=== PATIENT | male | born 1950 | race Caucasian/White ===

== ENCOUNTER 2018-05-02 18:44 | Emergency (ER) | payer OTHER, SELFPAY ==
[2018-05-02 18:45] VITALS: BP 173/71; PULSE 67; RESP 18; TEMP 36.8; O2SAT 97; BMI 46.9
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
[2018-05-02] MEDS: Ibuprofen 400 MG Tablet 800 MG PO (19:28)
[2018-05-02 19:39] VITALS: BP 147/57; PULSE 65; RESP 15; O2SAT 98
== END 2018-05-02 19:50 | disposition home or self-care (01) ==
PROVIDERS: Emergency Provider Emergency Medicine; Family Provider Family Medicine; PCP Family Medicine
DX: M25.512 Pain in left shoulder (principal); V89.2XXA Person injured in unspecified motor-vehicle accident, traffic, initial encounter; Y93.89 Activity, other specified; Y92.410 Unspecified street and highway as the place of occurrence of the external cause
CPT/HCPCS: 73030; 99284

== ENCOUNTER 2018-07-12 05:24 | Day surgery (SDC) | payer OTHER, SELFPAY ==
[2018-07-12] VITALS (7 sets, daily range): BP systolic 132–166; BP diastolic 66–94; PULSE 74–82; RESP 16–18; TEMP 36–36.2; O2SAT 90–98; BMI 53.8
--- NOTE | 2018-07-12 06:16 | HP.PCM_ITS ---
Problem List (1) Personal history of colonic polyps Status: Acute History of Present Illness Date of Admission: 07/12/18 The patient is a 68 year old M who presents for a colonoscopy. His most recent colonoscopy was May 19, 2013. Dating back to 2010 he had tubular adenoma s. Fortunately there were no polyps identified 2012. He has no family history of colon cancer. His most pertinent medical comorbidity is morbid obesity with a BMI of 53.9. He otherwise denies abdominal pain bright red blood per rectum or melena. He has otherwise been enjoying a stable to review of medical health. I saw him in the office on June 10, 2018. His health was reviewed at that s etting. Past Medical History Medical History: Medical History (Last Reviewed 06/10/18 @ 10:54 by Loretta Villalobos) Personal history of colonic polyps (Acute) Z86.010 HTN (hypertension) I10 Allergies No Known Allergies Allergy (Verified 07/12/18 05:55) Home Medications: Ambulatory Orders Medication Instructions Recorded Docusate Sodium [Colace] 100 mg PO DAILY #20 capsule 05/02/18 atenolol 50 mg tablet 50 mg PO DAILY 06/10/18 fexofenadine 180 mg tablet 180 mg PO DAILY 06/10/18 hydrochlorothiazide 12.5 mg tablet 12.5 mg PO DAILY 06/10/18 lisinopril 5 mg tablet 5 mg PO DAILY 06/10/18 lorazepam 1 mg tablet 1 mg PO QHS PRN 06/10/18 meloxicam 15 mg tablet 15 mg PO DAILY 06/10/18 Surgical History: Surgical History (Last Reviewed 06/10/18 @ 10:55 by Loretta Villalobos) S/P laparoscopic cholecystectomy Z90.49 Status post lateral meniscus repair Z98.890 Smoking Status: Never smoker Review of Systems Constitutional: Denies: Anorexia HEENT: Denies: Difficulty Swallowing Cardiovascular: Denies: Chest Pain Respiratory: Denies: Cough Gastrointestinal: Denies: Abdominal Pain Neurological: Denies: Difficulty swallowing Psychiatric: Denies: Anxiety Endocrine: Denies: Change in Body Habitus VTE Information - Inpt Only VTE Present on Admission: No - Physical Exam General: Alert, Oriented x3, Cooperative, No apparent distress Oral: Moist Mucosa Neck: Supple Lungs: Clear to auscultation Cardiovascular: Regular rate, Regular Rhythm Abdomen: Bowel Sounds Present, Soft, Non Tender Extremities: No clubbing Neurological: Cranial nerves II-XII grossly intact Psych/Mental Status: Normal Affect Vital Signs Temp Pulse Resp BP Pulse Ox 97.2 F L 82 18 132/69 H 98 07/12/18 05:56 07/12/18 05:56 07/12/18 05:56 07/12/18 05:56 07/12/18 05:56 Oxygen Delivery Method Room Air Weight: 375 lb Body Mass Index (BMI) 53.8 Assessment/Plan All Active Problems (Last Reviewed 06/10/18 @ 10:54 by Loretta Villalobos) Personal history of colonic polyps (Acute) Personal history of colon polyps. I recommended colonoscopy with possible biopsy or polypectomy is indicated. He is aware of the technique, benefits, risks and alternatives. He has actually had this nicely done with IV sedation in the past. We will proceed was noted. He has had an opportunity to ask and have questions answered. Sha Adam M.D., F.A.C.S.
--- NOTE | 2018-07-12 07:00 | OP.ENDO_ITS ---
Patient Name: Job Ledesma Procedure Date: 07/12/2018 6:21 AM Date of : 1950 Age: 68 Procedure: Colonoscopy Indications: High risk colon cancer surveillance: Personal history of colonic polyps Providers: Sha Adam MD Referring MD: Sha Adam MD Medicines: Midazolam 3 mg IV, Meperidine 100 mg IV Patient Profile: Last Colonoscopy: 5 years ago. Complications: No immediate complications. Procedure: Pre-Anesthesia Assessment: - Prior to the procedure, a History and Physical was performed, and patient medications and allergies were reviewed. The patient's tolerance of previous anesthesia was also reviewed. The risks and benefits of the procedure and the sedation options and risks were discussed with the patient. All questions were answered, and informed consent was obtained. Prior Anticoagulants: The patient has taken no previous anticoagulant or antiplatelet agents. ASA Grade Assessment: III - A patient with severe systemic disease. After reviewing the risks and benefits, the patient was deemed in satisfactory condition to undergo the procedure. After I obtained informed consent, the scope was passed under direct vision. Throughout the procedure, the patient's blood pressure, pulse, and oxygen saturations were monitored continuously. The colonoscope was introduced through the anus and advanced to the cecum, identified by appendiceal orifice and ileocecal valve. The colonoscopy was performed without difficulty. The patient tolerated the procedure well. The quality of the bowel preparation was good. The ileocecal valve was photographed. Moderate Sedation: Moderate (conscious) sedation was personally administered by the endoscopist. The following parameters were monitored: oxygen saturation, heart rate, blood pressure, and response to care. Total physician intraservice time was 15 minutes. Scope In: 6:34:27 AM Scope Withdrawal Time 0 hours 9 minutes 52 seconds Scope Out: 6:54:29 AM Total Procedure Duration Time 0 hours 20 minutes 2 seconds Findings: The perianal and digital rectal examinations were normal. A few diverticula were found in the sigmoid colon. The exam was otherwise without abnormality. Impression: - Diverticulosis in the sigmoid colon. - The examination was otherwise normal. - No specimens collected. Recommendation: - Discharge patient to home. - Resume previous diet. - Continue present medications. - Repeat colonoscopy in 5 years for surveillance. Procedure Code(s): --- Professional --- 70309, Colonoscopy, flexible; diagnostic, including collection of specimen(s) by brushing or washing, when performed (separate procedure) 67784, 59, Moderate sedation services provided by the same physician or other qualified health wound care physician performing the diagnostic or therapeutic service that the sedation supports, requiring the presence of an independent trained observer to assist in the monitoring of the patient's level of consciousness and physiological status; initial 15 minutes of intraservice time, patient age 5 years or older Diagnosis Code(s): --- Professional --- Z86.010, Personal history of colonic polyps K57.30, Diverticulosis of large intestine without perforation or abscess without bleeding CPT copyright 2017 [employer]. All rights reserved. The codes documented in this report are preliminary and upon outpatient psychiatrist review may be revised to meet current compliance requirements. Sha Adam MD 07/12/2018 7:00:07 AM This report has been signed electronically. Number of Addenda: 0 Note Initiated On: 07/12/2018 6:21 AM
== END 2018-07-12 07:44 | disposition home or self-care (01) ==
LOC: EN 05:25 → AC 05:26
PROVIDERS: Family Provider Family Medicine; PCP Family Medicine; Referring Provider Surgery; Visit Provider Surgery
PROC: 0DJD8ZZ Inspection of Lower Intestinal Tract, Via Natural or Artificial Opening Endoscopic (ICD-10-PCS; CPT 45378; principal; 2018-07-12 06:25)
DX: Z86.010 Personal history of colon polyps (principal); K57.30 Diverticulosis of large intestine without perforation or abscess without bleeding; E66.01 Morbid (severe) obesity due to excess calories; Z68.43 Body mass index [BMI] 50.0-59.9, adult; I10 Essential (primary) hypertension; Z79.899 Other long term (current) drug therapy
CPT/HCPCS: 45378; 99152; 99153; J7120

== ENCOUNTER → 2019-09-14 08:36 | Outpatient (CLI) | payer MEDICARE, OTHER, SELFPAY ==
[2019-09-14 08:33] VITALS: BMI 53.8
--- NOTE | 2019-09-14 08:38 | RAD_ITS ---
STUDY: X-RAY - LEFT KNEE REASON FOR EXAM: Male, 69 years old. Pain, arthritis TECHNIQUE: 4 view(s) of the knee. COMPARISON: None. FINDINGS: Normal visualized distal femur. Normal visualized proximal tibia and fibula. Normal proximal tibiofibular articulation. There is no demonstrated fracture. There is severe degenerative arthrosis of the medial femorotibial compartment with severe joint space narrowing. Normal lateral femorotibial compartment. There is moderate degenerative arthrosis of the patellofemoral articulation. There is no demonstrated joint effusion. The soft tissue structures are unremarkable. RAD/Knee 4 or More Views IMPRESSION: No acute fracture or dislocation. 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 Electronically Signed: Jeffry Contreras MD at 19:45 EST , Service support ,
--- NOTE | 2019-09-14 08:38 | RAD_ITS ---
STUDY: X-RAY - RIGHT KNEE REASON FOR EXAM: Male, 69 years old. Pain, arthritis TECHNIQUE: 3 view(s) of the knee. COMPARISON: None. FINDINGS: Normal visualized distal femur. Normal visualized proximal tibia and fibula. Normal proximal tibiofibular articulation. There is no demonstrated fracture. There is severe degenerative arthrosis of the medial femorotibial compartment with severe joint space narrowing. Normal lateral femorotibial compartment. There is mild degenerative arthrosis of the patellofemoral articulation. There is no demonstrated joint effusion. The soft tissue structures are unremarkable. RAD/Knee 4 or More Views IMPRESSION: No acute fracture or dislocation. Severe medial compartment narrowing. Electronically Signed: Jeffry Contreras MD at 19:43 EST , Service support ,
== END ==
PROVIDERS: Family Provider Family Medicine; PCP Family Medicine; Referring Provider Orthopaedic Surgery; Visit Provider Orthopaedic Surgery
DX: M17.0 Bilateral primary osteoarthritis of knee (principal)
CPT/HCPCS: 73564

== ENCOUNTER 2020-03-05 10:47 | Emergency (ER) | payer MEDICARE, OTHER, SELFPAY ==
[2020-03-05 09:54] VITALS: BMI 50.8
[2020-03-05 10:48] VITALS: BP 156/81; PULSE 78; RESP 17; TEMP 36.4; O2SAT 98; BMI 52.4
--- NOTE | 2020-03-05 11:12 | VDLE_ITS ---
Reason For Study: Swelling Procedure LEFT Exam performed in department. GSV is normal. A preliminary report was called and/or faxed CFV is compressible, spontaneous, phasic, to Yann. competent, and demonstrates normal augmentation. FV is compressible, spontaneous, phasic, competent and demonstrates normal augmentation. POP V is compressible, spontaneous, phasic, competent and demonstrates normal augmentation. T/P Trunk is compressible. PTV is compressible. LT PerV is compressible. Interpretation Summary There is no evidence of left lower extremity deep vein thrombosis. Left great saphenous vein appears patent and compressible segmentally. Ordering Physician: Adonis Lerner Referring Physician: MD Sylvia Urban Performed By: Aleja Cannon RVT
[2020-03-05 11:40] LABS: Absolute Lymphocyte Count 1.19 X10^3/uL (0.83-4.51); Absolute Neutrophil Count 5.1 X10^3/uL (2.0-7.7); Basophil# 0.05 X10^3/uL; Basophil% 0.7 % (0-1); Eosinophil# 0.23 X10^3/uL; Hematocrit 38.5 % (40-54); Hemoglobin 12.7 g/dL (13.0-16.5); Lymphocyte # 1.19 X10^3/ul (4.0); Lymphocyte % 15.7 % (19-41); Mean Corpuscular Hgb 30.2 pg (27.0-32.0); Mean Corpuscular Volume 91.7 fL (80-94); Mean Platelet Vol. 8.9 fl (6.2-12.0); Monocyte# 0.85 X10^3/uL; Monocyte% 11.2 % (0-10); NRBC Flagged by Analyzer 0 % (0-5); Neutrophil # 5.14 X10^3/uL (2.7-7.7); Neutrophil % 67.9 % (47-70); Platelet Count 208 K/mm3 (150-450); RBC Distribution Width CV 13.3 % (11.6-14.6); RBC Distribution Width SD 43.8 fl (35.1-43.9); White Blood Count 7.6 K/mm3 (4.4-11.0)
[2020-03-05] MEDS: Cefazolin 1 GM/50 ML BAG IV (11:51)
[2020-03-05 11:53] LABS: Anion Gap 4 (5-15); BUN 19 mg/dL (7-18); BUN/Creat Ratio 17.3 RATIO (10-20); Calcium,Total 8.9 mg/dL (8.5-10.1); Chloride 105 mmol/L (98-107); EST Glomerular Filtration Rate 71 mL/min (>60); Est Glom Filt Rate - Afr Amer 85 mL/min (>60); Estimated Creatinine Clearance 63.38 ml/min; Glucose 92 mg/dL (74-106); Potassium 4.7 mmol/L (3.5-5.1); Sodium Level 140 mmol/L (136-145)
--- NOTE | 2020-03-05 12:10 | ED.VISSUMM ---
- ER Visit Summary Date of Service: 03/05/20 Chief Complaint: Left leg swelling History of Present Illness: The patient is a [address] De La Rosa. He reports that he has chronic swelling of both legs, but the left is gotten worse over the past 3 days. He reports he has a dull, throbbing pain is 3-10 when he touches it and 2 out of 10 at rest. Denies any paresthesias distally. He denies any recent trauma. No fall, MVA, or change in activity. Patient denies any fever, nausea, vomiting, or other constitutional symptoms. Physical Examination: Vitals: Stable. Afebrile. General: Well-nourished and well-developed. Head: Normocephalic atraumatic. Neck: Supple, no lymphadenopathy. No JVD. Nontender. Cardiovascular: Regular rate and rhythm. No murmurs. Respiratory: No respiratory distress. Clear to auscultation bilaterally. Abdominal: Soft, nontender, nondistended, normal bowel sounds. No guarding, rebound, or peritoneal signs. Back: Nontender. Extremities: Nontender, 2+ pitting edema of his lower extremities bilaterally. There are chronic venous stasis changes bilaterally. There is overlying erythema and warmth on the left. Neurologic: Alert and oriented ?3. Cranial nerves II through XII are intact. Normal strength and sensation. Psych: Normal affect. Test Results: Left lower extremity Doppler was negative. CBC shows an H&H 12.7 30.5 with immature GliaSite is 1.5%. Chem-7 shows a BUN of 19. Emergency Department Course and Treatment: Patient had an IV placed. Is given a dose of Ancef IV. He refused pain medications and is resting comfortably. Treatment Plan: Patient be discharged on Keflex. Instructed to follow-up his primary care physician in 2 days for a wound check. Return to the emergency department for any worsening symptoms. Disposition: To home in improved and stable condition. Impression: 1. Cellulitis left leg. This note was generated with [employer] dictation software. It may contain incorrect words, spelling, and punctuation that were not noted in review of the chart prior to signing ED Disposition - Plan for ED Patient: Disposition: Home or Assisted Living Instructions: ED Cellulitis Prescriptions: Cephalexin [Keflex] 500 mg PO Q6 #40 cap Prescription Printed Referrals: Elderbrock,Urban, MD [Primary Care Provider] - 2 Days for wound check
[2020-03-05 12:47] VITALS: BP 142/74; PULSE 70; RESP 18; O2SAT 97
== END 2020-03-05 12:56 | disposition home or self-care (01) ==
LOC: ED 12:18
PROVIDERS: Emergency Provider Emergency Medicine; PCP Family Medicine
DX: L03.116 Cellulitis of left lower limb (principal); I10 Essential (primary) hypertension
CPT/HCPCS: 80048; 85025; 93971; 96365; 99283; J7050; A4216

== ENCOUNTER → 2020-03-23 14:53 | Outpatient (CLI) | payer MEDICARE, OTHER, SELFPAY ==
[2020-03-05 10:48] VITALS: BMI 52.4
--- NOTE | 2020-03-23 14:57 | VDLE_ITS ---
Reason For Study: DVT Procedure LEFT Exam performed in department. GSV is normal. The study was technically difficult. CFV is compressible, spontaneous, phasic, A preliminary report was called and/or faxed competent, and demonstrates normal to ELANA RAY. augmentation. FV is compressible, spontaneous, phasic, competent and demonstrates normal augmentation. POP V is compressible, spontaneous, phasic, competent and demonstrates normal augmentation. T/P Trunk is compressible. PTV is compressible. LT PerV is compressible. Interpretation Summary Deep veins of the left lower extremity are patent and compressible segmentally. There is no evidence of left lower extremity deep vein thrombosis. Valvular competence appears intact within the proximal deep venous system on the left . The left great saphenous vein appears patent and compressible segmentally. Ordering Physician: Selina Hernandez Referring Physician: LAVONNE ANDERSON Performed By: Lori Gee, LUBA, RVT
== END ==
PROVIDERS: PCP Family Medicine; Referring Provider Registered Nurse; Visit Provider Registered Nurse
DX: M79.605 Pain in left leg (principal)
CPT/HCPCS: 93971

== ENCOUNTER → 2020-10-19 21:19 | Outpatient (CLI) | payer MEDICARE, OTHER, SELFPAY ==
[2020-10-05 09:25] VITALS: BMI 52.7
== END ==
PROVIDERS: PCP Family Medicine; Visit Provider Internal Medicine Critical Care Medicine
DX: G47.33 Obstructive sleep apnea (adult) (pediatric) (principal)
CPT/HCPCS: 95811

== ENCOUNTER → 2021-04-09 13:00 | Outpatient (CLI) | payer MEDICARE, OTHER, SELFPAY ==
[2021-03-26 08:27] VITALS: BMI 44.2
== END ==
PROVIDERS: PCP Family Medicine; Referring Provider Internal Medicine Critical Care Medicine; Visit Provider Internal Medicine Critical Care Medicine
DX: G47.33 Obstructive sleep apnea (adult) (pediatric) (principal)
CPT/HCPCS: 98960; G0463

== ENCOUNTER → 2021-07-05 | Outpatient (CLI) | payer MEDICARE, OTHER, SELFPAY | END | disposition home or self-care (01) | LOC: LABSPEC 09:31 | PROVIDERS: PCP Family Medicine; Referring Provider Physician Assistant Surgical; Visit Provider Physician Assistant Surgical | DX: Z20.822 Contact with and (suspected) exposure to COVID-19 (principal) | CPT/HCPCS: 87635; U0005; U0003 ==

== ENCOUNTER 2023-06-01 16:41 | Observation (INO) | payer MEDICARE, OTHER, SELFPAY ==
[2023-06-01] VITALS (7 sets, daily range): BP systolic 97–125; BP diastolic 48–99; PULSE 75–98; RESP 14–20; TEMP 36.1–36.8; O2SAT 95–99; BMI 47.3; BMI 46.1
--- NOTE | 2023-06-01 16:57 | EKG12_ITS ---
Test Reason : Blood Pressure : / mmHG Vent. Rate : 095 BPM Atrial Rate : 000 BPM P-R Int : 000 ms QRS Dur : 080 ms QT Int : 354 ms P-R-T Axes : 000 -30 000 degrees QTc Int : 444 ms Atrial fibrillation Left axis deviation Nonspecific ST and T wave abnormality Abnormal ECG Confirmed by OLIVER AHUMADA, ADELA ([id number]), electronic news gathering editor AMY GARCIA ([id number]) on 06/05/2023 2:28:58 PM Referred By: Confirmed By:ADELA BOYD MD
[2023-06-01] MEDS: 0.9% Normal Saline (500mL Bag) 500 ML 999 ML IV (17:00)
--- NOTE | 2023-06-01 17:01 | EDS_ITS ---
HPI <ELANA Govea - Last Filed: 06/01/23 20:38> History of Present Illness Chief Complaint: Chest Pain Narrative Narrative: Patient is a 73-year-old male with history of obesity, obstructive sleep apnea, hypertension, history of colon cancer presents to the emergency department with upper chest pain as well as dizziness, near syncope. 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 Patient states that the feeling did not go away, he did feel some dizziness and unsteadiness. Secondary to this dizziness standing, he did call the ambulance. He does state to have a slight pressure-like sensation to his upper chest lower throat. Patient denies any significant pain, denies any nausea vomiting. Patient did have some shortness of breath with this episode. PFSH <ELANA Govea - Last Filed: 06/01/23 20:38> [facility] Medical History (Updated 06/01/23 @ 20:38 by ELANA Govea) Arthritis Hay fever HTN (hypertension) Knee pain Personal history of colonic polyps Home Medications atenolol 50 mg tablet (Tenormin) 50 mg PO DAILY 06/10/18 [History Last Taken 07/11/18] fexofenadine 180 mg tablet 180 mg PO DAILY 06/10/18 [History Last Taken 07/11/18] finasteride 5 mg tablet 5 mg PO DAILY 08/22/19 [History Last Taken Unknown] lisinopril 20 mg tablet 20 mg PO DAILY 08/22/19 [History Last Taken Unknown] lorazepam 2 mg tablet 1 mg PO QHS 09/14/19 [History Last Taken Unknown] fluticasone propionate 50 mcg/actuation nasal spray,suspension 1 spray intranasal BID 10/04/20 [History Last Taken Unknown] Allergy/AdvReac Type Severity Reaction Status Date / Time house dust Allergy Other Verified 06/01/23 16:48 ragweed pollen Allergy Other Verified 06/01/23 16:48 tramadol [From Ultram] Allergy Constipatio Verified 06/01/23 16:48 n tree and shrub pollen Allergy Other Verified 06/01/23 16:48 yeast, dried Allergy unknown Verified 06/01/23 16:48 Family History Father Heart disease Hypertension Myocardial infarction Mother Cancer Lung cancer Surgical History Hx of colonoscopy S/P laparoscopic cholecystectomy Status post lateral meniscus repair Social History Smoking Status: Never smoker alcohol intake: never ROS <ELANA Govea - Last Filed: 06/01/23 20:38> ROS ED ROS Narrative Constitutional: Negative for fever, chills, weight loss, weakness Eyes: Negative for vision loss, vision change, double vision ENT: Negative for any sore throat, ear pain, congestion Cardiovascular: Negative for any palpitations. Positive for upper chest pain, throat pain, chest pressure Respiratory: Negative for any cough, sputum production, hemoptysis, dyspnea, dyspnea on exertion, orthopnea Gastrointestinal: Negative for any abdominal pain, nausea, vomiting, diarrhea, constipation, blood in stool, blood in vomit : Negative for any urinary frequency, dysuria, retention, blood in urine Muscle skeletal: Negative for any muscle joint pain, stiffness, myalgias, arthra lgias, neck pain, back pain Neurological: Negative for any headache, numbness or tingling. Positive for dizziness, near syncope Skin: Negative for any rashes, lumps, itching, abrasions, lacerations Psychiatric: Negative for any depression, anxiety, stress, suicidal ideation, homicidal ideation Hematologic: Negative for any easy bruising, excessive bruising, easy bleeding Allergies: Negative for any eczema, hives, rash EXAM <ELANA Govea - Last Filed: 06/01/23 20:38> Physical Exam Narrative Exam Narrative: Vital signs reviewed. Patient's heart rate was irregular, blood pressure 97 systolic. HEET: Head normocephalic atraumatic, TMs clear bilaterally. Posterior pharynx is clear, moist mucous membranes. Nares clear bilaterally. Neck: Supple with no lymphadenopathy or tenderness. No signs of meningismus, negative jolt sign. Cardiac: irregular rate no murmurs gallops or rubs, equal peripheral pulses bilaterally. Respiratory: Lungs clear to auscultation bilaterally. No chest tenderness. Abdomen: Soft, nontender, nondistended. No abdominal bruit or pulsatile masses. No hepatosplenomegaly Extremities: Patient does have bilateral peripheral edema which is chronic. Vascular disease noted. No acute process. No signs of gross trauma or deformity. Active full range of motion of all extremities. Neuro: Cranial nerves II through XII intact, no focal neurological deficits. Skin: Clean dry and intact with no rash, purpura, petechiae, vesicles or pustules. Backs/flank: No CVA tenderness, no midline spinal tenderness, no deformity. Psych: Normal mood and affect. No SI, HI or acute psychosis. Const Vital Signs: 06/01/23 16:45 06/01/23 16:41 06/01/23 16:50 Temperature 98.3 F Temperature Source Oral Pulse Rate 98 Respiratory Rate 19 H Respiratory Effort Normal Non-Labored Blood Pressure 97/59 L Blood Pressure Mean 71 Pulse Ox 95 Oxygen Delivery Method Room Air 06/01/23 17:05 06/01/23 17:43 06/01/23 18:52 Temperature Temperature Source Pulse Rate 75 77 Respiratory Rate 17 20 H Respiratory Effort Blood Pressure 107/48 L 109/54 L Blood Pressure Mean 67 72 Pulse Ox 96 97 Oxygen Delivery Method Room Air Room Air Room Air Positive well nourished, well developed and obese General Appearance ED: well developed Nutritional Appearance: obese <Dr. Chilo Crowell DO - Last Filed: 06/01/23 18:01> Physical Exam Const Vital Signs: 06/01/23 16:45 06/01/23 16:41 06/01/23 16:50 Temperature 98.3 F Temperature Source Oral Pulse Rate 98 Respiratory Rate 19 H Respiratory Effort Normal Non-Labored Blood Pressure 97/59 L Blood Pressure Mean 71 Pulse Ox 95 Oxygen Delivery Method Room Air 06/01/23 17:05 06/01/23 17:43 06/01/23 18:52 Temperature Temperature Source Pulse Rate 75 77 Respiratory Rate 17 20 H Respiratory Effort Blood Pressure 107/48 L 109/54 L Blood Pressure Mean 67 72 Pulse Ox 96 97 Oxygen Delivery Method Room Air Room Air Room Air MDM <ELANA Govea - Last Filed: 06/01/23 20:38> MDM Lab Data Labs: Laboratory Results - last 24 hr 06/01/23 06/01/23 16:25 18:55 WBC 7.8 RBC 4.96 Hgb 14.8 Hct 44.6 MCV 89.9 MCH 29.8 MCHC 33.2 RDW Std Deviation 44.4 H RDW Coeff of Collins 13.4 Plt Count 219 MPV 9.7 Immature Gran % (Auto) 0.500 Neut % (Auto) 64.4 Lymph % (Auto) 21.5 [place] % (Auto) 11.9 H Eos % (Auto) 1.2 Baso % (Auto) 0.5 Absolute Neuts (auto) 5.0 Absolute Lymphs (auto) 1.67 Nucleated RBC % 0 D-Dimer Quant (PE/DVT) 0.34 Sodium 136 Potassium 4.1 Chloride 102 Carbon Dioxide 31.0 Anion Gap 3 L BUN 23 H Creatinine 1.34 H Estim Creat Clear Calc 51.45 Est GFR (MDRD) Af Amer 67 Est GFR (MDRD) Non-Af 56 L BUN/Creatinine Ratio 17.2 Glucose 94 Calcium 9.3 Troponin I High Sens 31 28 B-Natriuretic Peptide 152.7 H TSH 1.36 Radiography Diagnostic Testing: Clinical Impression(s) from Imaging Studies Chest X-Ray 06/01/23 17:03 IMPRESSION: No acute pulmonary finding. Electronically Signed: Jorje Chavarria MD at 17:18 EDT , EKG Atrial fibrillation: Attestation: I personally reviewed and interpreted this EKG as follows: Interpretation: Atrial Fibrillation Comments: EKG shows atrial fibrillation, rate of 95 bpm, QRS duration was 80 ms, no acute ST elevation, no acute infarct. Treatment and Re-Evaluation :: Patient is in no obvious distress. Patient presents to the emergency department with complaints of dizziness, near syncope, chest pressure. Patient's physical examination did show a irregular heartbeat this is new for this patient. Patient has no history of atrial fibrillation. Patient blood pressure slightly soft at 97/59. Heart rate was below 100. Patient will receive a full cardiac work-up including a D-dimer to rule out any pulmonary embolus. EKG to rule out any pleural effusion, pneumonia. Patient received 500 cc of normal saline. 2 sets of troponins. Patient CBC was unremarkable, patient's chemistries show a creatinine 1.34, slightly elevated, did receive 500 cc normal saline. proBNP was 152.7 which is elevated however I do believe this is secondary to the irregular heartbeat. TSH was negative. Troponin initial was 31, repeat was 28. Chest x-ray two-view inter by ER physician shows no acute pulmonary findings. At this time, there is no evidence of ACS. Patient remains in atrial fibrillation and a rate between 80-75. I spoke with the patient at length, secondary the patient having a near syncopal episode today, it not being relieved with laying down, I do believe the patient needs to be admitted to the hospital for new onset atrial fibrillation. I spoke with Dr. Guevara who is the admitting physician, he agrees, patient be on PCU observation. <Dr. Chilo Crowell, DO - Last Filed: 06/01/23 18:01> [facility] Narrative Medical decision making narrative: I have personally performed a face to face assessment of the patient and have reviewed the MIGUEL A Note. I performed a substantive portion of the visit including all aspects of the following. My mccartney findings include: History: Patient presents with chest pain that began last night. Patient states he bent over to get a dutton out of the cupboard when he started feeling some pain in his chest. Patient states he also felt some palpitations at that time. Patient admits to some mild shortness of breath. Patient states his son is a master brewer and he came over to evaluate him today. Patient states he noted that his heart rate was irregular and called EMS. Patient admits to some slight shor tness of breath. Patient denies any diaphoresis. Patient denies any nausea or vomiting. Exam: Vital signs are stable. Patient is afebrile. Patient is in no acute distress. Oral mucosa is pink and moist. Neck is supple. Trachea is midline. There is no JVD. Heart was irregularly irregular. Lungs are clear and equal bilaterally. There is good respiratory effort noted. Abdomen is soft. Bowel sounds are normal. There is no tenderness. Cranial nerves II through XII are intact. There are no focal motor or sensory deficits noted. Medical Decision Making: Differential diagnosis includes cardiac dysrhythmia and cardiac ischemia, pneumonia, pulmonary embolism, electrolyte abnormality, dehydration, hypothyroidism, and congestive heart failure. EKG will be obtained to assess for cardiac dysrhythmia and cardiac ischemia. Chest x-ray will be obtained to assess for pneumonia and congestive heart failure. CBC will be obtained to assess for leukocytosis and anemia. Basic metabolic profile will be obtained to assess for electrolyte abnormality and renal function. High- sensitivity troponin will be obtained to assess for cardiac ischemia. 2-hour repeat high-sensitivity troponin will be obtained to assess for ongoing cardiac ischemia. D-dimer will be obtained to assess for pulmonary embolism. TSH will be obtained to assess for hyperthyroidism and hypothyroidism. BNP will be obtained to assess for congestive heart failure. EKG showed atrial fibrillation with a rate of 95. There are no acute ST or T wave changes noted. CBC was reviewed and was within normal limits. Basic metabolic profile was reviewed. BUN was 23 and creatinine was 1.34. Are slightly increased compared to previous results. High-sensitivity troponin was reviewed and was normal at 31. TSH was reviewed and was normal at 1.36. BNP was reviewed and was slightly elevated at 152.7. Portable 1 view chest x-ray was obtained. On my independent interpretation, lung ortega are clear. There is normal cardiac silhouette. Bony thorax is normal. There is no acute process noted. Radiologist also interpreted the x-ray and agrees. Lab Data Labs: Laboratory Results - last 24 hr 06/01/23 06/01/23 16:25 18:55 WBC 7.8 RBC 4.96 Hgb 14.8 Hct 44.6 MCV 89.9 MCH 29.8 MCHC 33.2 RDW Std Deviation 44.4 H RDW Coeff of Collins 13.4 Plt Count 219 MPV 9.7 Immature Gran % (Auto) 0.500 Neut % (Auto) 64.4 Lymph % (Auto) 21.5 [place] % (Auto) 11.9 H Eos % (Auto) 1.2 Baso % (Auto) 0.5 Absolute Neuts (auto) 5.0 Absolute Lymphs (auto) 1.67 Nucleated RBC % 0 D-Dimer Quant (PE/DVT) 0.34 Sodium 136 Potassium 4.1 Chloride 102 Carbon Dioxide 31.0 Anion Gap 3 L BUN 23 H Creatinine 1.34 H Estim Creat Clear Calc 51.45 Est GFR (MDRD) Af Amer 67 Est GFR (MDRD) Non-Af 56 L BUN/Creatinine Ratio 17.2 Glucose 94 Calcium 9.3 Troponin I High Sens 31 28 B-Natriuretic Peptide 152.7 H TSH 1.36 Radiography Chest X-Ray - ED: 1 View, Read by ED Physician, Read by Radiologist and No Acute Disease Diagnostic Testing: Clinical Impression(s) from Imaging Studies Chest X-Ray 06/01/23 17:03 IMPRESSION: No acute pulmonary finding. Electronically Signed: Jorje Chavarria MD at 17:18 EDT , Discharge Plan Triage Chief Complaint: Chest Pain ED Midlevel Provider: Lizandro Garcia ED Provider: Chilo Crowell Dx/Rx/DC Orders Clinical Impression: Near syncope, Atrial fibrillation, new onset Prescriptions: No Action atenolol [Tenormin] 50 mg tablet 50 mg PO DAILY fexofenadine 180 mg tablet 180 mg PO DAILY finasteride 5 mg tablet 5 mg PO DAILY lisinopril 20 mg tablet 20 mg PO DAILY lorazepam 2 mg tablet 1 mg PO QHS fluticasone propionate 50 mcg/actuation spray,suspension 1 spray INTRANASAL BID Rx Instructions: administer into each nostril Primary Care Provider: Urban Ward Referrals: Urban Ward MD [Primary Care Provider] - Disposition Disposition: Acute Care Hospital [facility]
--- NOTE | 2023-06-01 17:03 | RAD_ITS ---
INDICATION: chest pain EXAMINATION/TECHNIQUE: X-RAY - XR Chest 1 View COMPARISON: No relevant prior comparison study available FINDINGS: LINES/DEVICES: None. LUNGS: The lungs are well expanded. No consolidation, edema or effusion. No pneumothorax. MEDIASTINUM AND CARDIOVASCULAR STRUCTURES: Cardiac silhouette not enlarged. Central airways and mediastinal contour are unremarkable. BONES AND SOFT TISSUES: Unremarkable. RAD/Chest 1 View (Portable) IMPRESSION: No acute pulmonary finding. Electronically Signed: Jorje Chavarria MD at 17:18 EDT ,
[2023-06-01 17:15] LABS: Absolute Lymphocyte Count 1.67 X10^3/uL (0.83-4.51); Basophil# 0.04 X10^3/uL; Basophil% 0.5 % (0-1); Eosinophil# 0.09 X10^3/uL; Eosinophils% 1.2 % (0-5); Hematocrit 44.6 % (40-54); Hemoglobin 14.8 g/dL (13.0-16.5); Lymphocyte # 1.67 X10^3/ul (0.83-4.51); Lymphocyte % 21.5 % (19-41); Mean Corp Hgb Conc 33.2 g/dL (32-36); Mean Corpuscular Hgb 29.8 pg (27.0-32.0); Mean Corpuscular Volume 89.9 fL (80-94); Mean Platelet Vol. 9.7 fl (6.2-12.0); Monocyte# 0.92 X10^3/uL; Monocyte% 11.9 % (0-10); NRBC Flagged by Analyzer 0 % (0-5); Neutrophil % 64.4 % (47-70); Platelet Count 219 K/mm3 (150-450); RBC Distribution Width CV 13.4 % (11.6-14.6); RBC Distribution Width SD 44.4 fl (35.1-43.9); Red Blood Count 4.96 M/mm3 (4.6-6.2); White Blood Count 7.8 K/mm3 (4.4-11.0)
[2023-06-01 17:36] LABS: Anion Gap 3 (5-15); BUN 23 mg/dL (7-18); BUN/Creat Ratio 17.2 RATIO (10-20); Calcium,Total 9.3 mg/dL (8.5-10.1); Chloride 102 mmol/L (98-107); Creatinine, Serum 1.34 mg/dL (0.70-1.30); EST Glomerular Filtration Rate 56 mL/min (>60); Est Glom Filt Rate - Afr Amer 67 mL/min (>60); Estimated Creatinine Clearance 51.45 ml/min; Glucose 94 mg/dL (74-106); Potassium 4.1 mmol/L (3.5-5.1); Sodium Level 136 mmol/L (136-145); Thyroid Stim Hormone (TSH) 1.36 uIU/mL (0.358-3.74); Troponin-I HS (w/2H Reflex) 31 pg/mL (3.0-78.0)
[2023-06-01 17:41] LABS: BNP,B-Type NATRIURETIC PEPTIDE 152.7 pg/mL (0-100)
[2023-06-01 18:18] LABS: D-Dimer Quantitative (DVT/PE) 0.34 FEU/ug/m (0.27-0.49)
[2023-06-01 19:09] LABS: Reflex Troponin-HS? (from REC) Y
[2023-06-01 19:50] LABS: Troponin-I HS 28 pg/mL (3.0-78.0)
--- NOTE | 2023-06-01 20:29 | PCM.HP.STD ---
HPI - General General Date of Admission: 06/01/23 Date of Service: 06/01/23 Chief Complaint: Presyncope HPI Narrative ANTONIO ANDERSON, is a 73 M with history of hypertension, morbid obesity, BEN and BPH who presented to [facility] ED on 06/01/2023 with chest pain, dizziness and near syncope. Patient seen at bedside in the ED, multiple family members present. Patient laying comfortably in bed, conversing normally, no acute distress. States that he feels much improved since coming to the ED and receiving some IV fluids. Denies any lightheadedness or dizziness at rest. Denies any chest pain currently. Patient states that over the past few days he felt somewhat off with a mild dizziness and mental fog at baseline. 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 He denies feeling any palpitations. States he has been eating and drinking about his normal recently. Has been taking his home medications as prescribed. Does not check his blood pressures regularly at home. He otherwise denies any fevers or chills. Denies any shortness of breath with exertion. Denies any abdominal pain or discomfort. No other acute concerns. Vitals in ED notable for mild hypotension, otherwise unremarkable. Labs notable for WBC count 7, hemoglobin 14.8, platelets 219, sodium 136, potassium 4.1, BUN 23, creatinine 1.34, magnesium 2.3, BNP 152. Chest x-ray was nonacute. EKG showed A-fib with heart rate around 90, no ST changes noted. [facility] Medical History (Updated 06/01/23 @ 20:38 by ELANA Govea) Arthritis Hay fever HTN (hypertension) Knee pain Personal history of colonic polyps Home Medications atenolol 50 mg tablet (Tenormin) 50 mg PO DAILY 06/10/18 [History Last Taken 07/11/18] fexofenadine 180 mg tablet 180 mg PO DAILY 06/10/18 [History Last Taken 07/11/18] finasteride 5 mg tablet 5 mg PO DAILY 08/22/19 [History Last Taken Unknown] lisinopril 20 mg tablet 20 mg PO DAILY 08/22/19 [History Last Taken Unknown] lorazepam 2 mg tablet 1 mg PO QHS 09/14/19 [History Last Taken Unknown] fluticasone propionate 50 mcg/actuation nasal spray,suspension 1 spray intranasal BID 10/04/20 [History Last Taken Unknown] Allergy/AdvReac Type Severity Reaction Status Date / Time house dust Allergy Other Verified 06/01/23 16:48 ragweed pollen Allergy Other Verified 06/01/23 16:48 tramadol [From Ultram] Allergy Constipatio Verified 06/01/23 16:48 n tree and shrub pollen Allergy Other Verified 06/01/23 16:48 yeast, dried Allergy unknown Verified 06/01/23 16:48 Family History Father Heart disease Hypertension Myocardial infarction Mother Cancer Lung cancer Surgical History Hx of colonoscopy S/P laparoscopic cholecystectomy Status post lateral meniscus repair Social History Smoking Status: Never smoker alcohol intake: never ROS Constitutional Constitutional: Denies change in weight, chills, fatigue, fever(s) or weakness Eyes Eyes: Denies change in vision Cardiovascular Cardiovascular: Reports lightheadedness; Denies chest pain, edema, orthopnea, palpitations, rapid heart rate or syncope Respiratory/Chest Respiratory/Chest: Denies cough Gastrointestinal Gastrointestinal: Denies abdominal pain Musculoskeletal Musculoskeletal: Denies back pain Psychiatric Psychiatric: Reports anxiety Endocrine Endocrinology: Denies cold intolerance, heat intolerance, polydipsia or polyuria Vital Signs Vital Signs Vital Signs: 06/01/23 16:45 06/01/23 16:41 06/01/23 16:50 Temperature 98.3 F Temperature Source Oral Pulse Rate 98 Respiratory Rate 19 H Respiratory Effort Normal Non-Labored Blood Pressure 97/59 L Blood Pressure Mean 71 Pulse Ox 95 Oxygen Delivery Method Room Air 06/01/23 17:05 06/01/23 17:43 06/01/23 18:52 Temperature Temperature Source Pulse Rate 75 77 Respiratory Rate 17 20 H Respiratory Effort Blood Pressure 107/48 L 109/54 L Blood Pressure Mean 67 72 Pulse Ox 96 97 Oxygen Delivery Method Room Air Room Air Room Air Weight Weight: 149.731 kg Body Mass Index (BMI) 47.3 Physical Exam Const alert and oriented x3 Constitutional Narrative: Pleasant elderly male, obese, resting comfortably in bed, conversing normally, no acute distress. General Appearance: cooperative, comfortable, well kempt and well developed HEENT normocephalic, head/scalp atraumatic, hearing grossly normal bilaterally, nasal mucous membranes and turbinates normal and moist oral mucous membranes Eyes PERRL, EOMs intact bilaterally and conjunctivae normal Neck full ROM, no lymphadenopathy and supple Lymph Lymphatic: no lymphadenopathy noted Chest inspection of chest normal Resp normal respiratory effort, normal air movement, no use of accessory muscles and clear to auscultation bilaterally Cardio no murmurs and peripheral pulses 2+ throughout Cardio Narrative: A-fib, rate controlled. GI normal to inspection, nondistended, normoactive bowel sounds, soft to palpation, non-tender and non-distended Back/Spine normal ROM Extremity normal to inspection and full ROM Skin no rashes or lesions noted Psych mental status grossly normal Results Lab / Micro Data 06/01/23 16:25 06/01/23 16:25 Labs: Laboratory Results - last 24 hr 06/01/23 16:25: WBC 7.8, RBC 4.96, Hgb 14.8, Hct 44.6, MCV 89.9, MCH 29.8, MCHC 33.2, RDW Std Deviation 44.4 H, RDW Coeff of Collins 13.4, Plt Count 219, MPV 9.7, Immature Gran % (Auto) 0.500, Neut % (Auto) 64.4, Lymph % (Auto) 21.5, [place] % (Auto) 11.9 H, Eos % (Auto) 1.2, Baso % (Auto) 0.5, Absolute Neuts (auto) 5.0, Absolute Lymphs (auto) 1.67, Nucleated RBC % 0, D-Dimer Quant (PE/DVT) 0.34, Sodium 136, Potassium 4.1, Chloride 102, Carbon Dioxide 31.0, Anion Gap 3 L, BUN 23 H, Creatinine 1.34 H, Estim Creat Clear Calc 51.45, Est GFR (MDRD) Af Amer 67, Est GFR (MDRD) Non-Af 56 L, BUN/Creatinine Ratio 17.2, Glucose 94, Calcium 9.3, Troponin I High Sens 31, B-Natriuretic Peptide 152.7 H, TSH 1.36 06/01/23 18:55: Troponin I High Sens 28 Radiology Impression Chest X-Ray 06/01/23 17:03 IMPRESSION: No acute pulmonary finding. Electronically Signed: Jorje Chavarria MD at 17:18 EDT Reading Location ID and State: [facility] / [place] Tel , Service support , Assessment & Plan Assessment/Plan (1) Atrial fibrillation, new onset: PLAN: Plan Patient is a 73-year-old male with history of hypertension, morbid obesity, BEN and BPH who presented to [facility] ED on 06/01/2023 with chest pain, dizziness and near syncope. 1. New onset A-fib, rate controlled Risk factors of age, hypertension, morbid obesity, BEN. EKG in ED showed A-fib with rate around 90, no ST changes noted. [id number] score of 2 (age, hypertension). Unclear on how long patient has been in A-fib at this point. ? Admit under observation status to PCU. Continue home atenolol for rate control. Will start Eliquis for anticoagulation, patient and family are in agreement. Echo ordered. Can consider cardiology consultation as needed. Monitor lytes, goal potassium greater than 4 and mag greater than 2. Monitor telemetry. 2. Presyncope Unclear etiology but patient appears mildly dry on labs, may have had a degree of hypotension in setting of new onset A-fib with home medications of atenolol and lisinopril for hypertension. Appears to be mildly hemoconcentrated on labs, with creatinine slightly above baseline and hemoglobin also slightly above baseline. ? Orthopedic vitals ordered. Gentle IV fluid resuscitation. Hold home lisinopril for now. Okay to continue home atenolol. Monitor a.m. labs. 3. Morbid obesity, concern for instability with ambulation ? Recent unsteadiness with ambulation most likely due to transient hypotension leading to presyncope as noted above. PT/OT/case management consulted for further evaluation. Chronic medical conditions: ? BEN: Continue home CPAP. ? BPH: Continue home finasteride. ? Anxiety: Continue home Ativan at night as needed. DVT prophylaxis: Eliquis CODE STATUS: Full code, verified Expected disposition: Home, 1 to 2 days Total clinical time spent by myself addressing the patient's medical issues, reviewing all the data, and collaborating with patient's care team: 55 minutes. Charges/Coding Visit Charges Inpatient E&M: 24020 Init Hosp L2
[2023-06-01 21:05] LABS: Magnesium 2.3 mg/dL (1.6-2.6)
[2023-06-01] MEDS: APIXABAN 5 MG TABLET PO (22:45)
--- NOTE | 2023-06-01 23:22 | ECHOD_ITS ---
Reason For Study: AFIB/FLUTTER Procedure This was a 2D Doppler, Color Flow transthoracic echocardiogram. Exam performed portable in patient room. Left Ventricle Normal LV size. Left ventricular systolic function is normal. The estimated ejection fraction is 60 %. No regional wall motion abnormalities noted. Right Ventricle Normal RV size. Normal systolic function. Atria The left atrium is mildly enlarged. Normal right atrium. Tricuspid Valve Normal tricuspid valve. Mild (1+) tricuspid valve insufficiency. Pulmonary artery systolic pressure is 34 mmHg. Pulmonic Valve The pulmonic valve is not well visualized. Great Vessels Normal aortic root. The pulmonary artery is normal size. Pericardium/Pleural No pericardial effusion. MMode/2D Measurements & Calculations LVIDd: 5.4 cm IVSd: 1.4 cm Ao root diam: 3.5 cm LVIDs: 3.9 cm LVPWd: 1.1 cm FS: 28.0 % LAV(MOD-bp): 69.6 ml LVAd ap4: 23.9 cm2 LVAd ap2: 20.4 cm2 LAV(MOD-bp) Indexed: 27.3 ml/m2 LVLd ap4: 7.2 cm LVLd ap2: 7.0 cm LAV(MOD-sp2): 69.7 ml EDV(MOD-sp4): 65.5 ml EDV(MOD-sp2): 51.9 ml LAV(MOD-sp4): 69.1 ml EDV(sp4-el): 67.2 ml EDV(sp2-el): 50.5 ml LVAs ap4: 14.2 cm2 LVAs ap2: 11.4 cm2 LVLs ap4: 6.3 cm LVLs ap2: 6.2 cm ESV(MOD-sp4): 27.6 ml ESV(MOD-sp2): 19.7 ml ESV(sp4-el): 26.9 ml ESV(sp2-el): 17.9 ml EF(MOD-sp4): 57.8 % EF(MOD-sp2): 62.1 % EF(sp4-el): 59.9 % SV(MOD-sp4): 37.9 ml SV(MOD-sp2): 32.2 ml SV(sp4-el): 40.3 ml LA A4 area: 21.9 cm2 LA dimension(2D): 4.7 cm RA A4 area: 16.9 cm2 TAPSE: 2.1 cm Doppler Measurements & Calculations MV E max vaughn: 83.6 cm/sec Lat Peak E' Vaughn: 12.7 cm/sec Med Peak E' Vaughn: 11.1 cm/sec E/E' lat: 6.6 E/E' med: 7.5 Ao V2 max: 113.5 cm/sec LV V1 max: 72.3 cm/sec PA V2 max: 84.5 cm/sec Ao max P.2 mmHg LV V1 max P.1 mmHg Ao V2 mean: 83.1 cm/sec LV V1 mean P.2 mmHg Ao mean P.1 mmHg LV V1 mean: 52.8 cm/sec Ao V2 VTI: 21.7 cm LV V1 VTI: 13.8 cm AV (velocity ratio): 0.64 TR max vaughn: 270.1 cm/sec PI dec slope: 100.5 cm/sec2 TR max P.2 mmHg ECHO/Echo Complete Interpretation Summary Normal LV size. Left ventricular systolic function is normal. The estimated ejection fraction is 60 %. The left atrium is mildly enlarged. Pulmonary artery systolic pressure is 34 mmHg. Ordering Physician: Eric Guevara Referring Physician: Urban Ward Performed By: Christina Lowry, LUBA, RVT
[2023-06-01] MEDS: LORazepam 1 MG Tablet PO (23:59)
[2023-06-02 03:53] VITALS: BP 133/80; PULSE 97; RESP 16; TEMP 36.4; O2SAT 97
[2023-06-02 07:37] VITALS: O2SAT 95
--- NOTE | 2023-06-02 07:39 | PCM.PN.HOSP ---
Reason for Visit Reason for Visit: Diagnoses Unspecified atrial fibrillation (06/01/23) Objective Data Objective Data Vital Signs: Vital Signs Temp Pulse Resp BP Pulse Ox O2 Del Method 97.6 F L 97 16 133/80 H 97 Room Air 06/02/23 03:53 06/02/23 03:53 06/02/23 03:53 06/02/23 03:53 06/02/23 03:53 06/02/23 03:53 Oxygen Delivery Method Room Air Weight: 146 kg Body Mass Index (BMI) 46.1 Intake & Output: Intake and Output for Last 24 Hours 05/31/23 06/01/23 06/02/23 23:59 23:59 23:59 Intake Total 500 / 500 240 / 240 Balance 500 / 500 240 / 240 Lab / Micro Data 06/01/23 16:25 06/01/23 16:25 Labs: Laboratory Results - last 24 hr 06/01/23 16:25: WBC 7.8, RBC 4.96, Hgb 14.8, Hct 44.6, MCV 89.9, MCH 29.8, MCHC 33.2, RDW Std Deviation 44.4 H, RDW Coeff of Collins 13.4, Plt Count 219, MPV 9.7, Immature Gran % (Auto) 0.500, Neut % (Auto) 64.4, Lymph % (Auto) 21.5, [place] % (Auto) 11.9 H, Eos % (Auto) 1.2, Baso % (Auto) 0.5, Absolute Neuts (auto) 5.0, Absolute Lymphs (auto) 1.67, Nucleated RBC % 0, D-Dimer Quant (PE/DVT) 0.34, Sodium 136, Potassium 4.1, Chloride 102, Carbon Dioxide 31.0, Anion Gap 3 L, BUN 23 H, Creatinine 1.34 H, Estim Creat Clear Calc 51.45, Est GFR (MDRD) Af Amer 67, Est GFR (MDRD) Non-Af 56 L, BUN/Creatinine Ratio 17.2, Glucose 94, Calcium 9.3, Troponin I High Sens 31, B-Natriuretic Peptide 152.7 H, TSH 1.36 06/01/23 18:55: Magnesium 2.3, Troponin I High Sens 28 Radiography Diagnostic Testing: Radiology Impression Chest X-Ray 06/01/23 17:03 IMPRESSION: No acute pulmonary finding. Electronically Signed: Jorje Chavarria MD at 17:18 EDT , Physical Exam Narrative GENERAL: cooperative HEENT: Atraumatic; normocephalic EYES; Anicteric, Normal Conjunctiva NECK; supple, normal thyroid, RESPIRATORY: Diminished to auscultation CARDIOVASCULAR: Irregular S1-S2 GI: soft, normoactive bowel sounds, : No Renal angle tenderness; EXTREMITIES: No edema, no clubbing, MUSCULOSKELETAL: no muscle wasting NEURO: Awake; no lateralizing signs. SKIN: No Rash PSYCH; Flat affect Assessment & Plan Assessment/Plan (1) Atrial fibrillation, new onset: PLAN: Plan Patient is a 73-year-old male with history of hypertension, morbid obesity, BEN and BPH who presented to [facility] ED on 06/01/2023 with chest pain, dizziness and near syncope. 1. New onset A-fib, rate controlled -[id number] score of 2 (age, hypertension). Unclear on how long patient has been in A-fib patient is on atenolol discontinued started on systemic anticoagulation with apixaban echo ordered 2. Presyncope ? Thought to secondary to orthostatic hypotension resuscitated with IV fluid patient was on lisinopril and atenolol lisinopril held 3.. Class III obesity with BMI of 46.2 ? Complicating care weight loss advised 4. Essential hypertension ? Patient lisinopril held did continue with atenolol 5. Obstructive sleep apnea ? Consistent use of CPAP encouraged 6. BPH ? Patient is on finasteride 7. Anxiety disorder ? Patient is on lorazepam at night as needed 8. Allergic rhinitis ? Patient is on fexofenadine, continued 9. DVT prophylaxis ? On apixaban Time spent in the patient's overall evaluation,decision-making process, review of diagnostic data, adjustment of management, discussion with other providers, nursing nursing and ancillary staff involved in patient's care documentation,45Minutes Charges/Coding Visit Charges Inpatient E&M: 33934 Subs Hosp L2
[2023-06-02 08:21] VITALS: BP 137/62; TEMP 36.7
[2023-06-02] MEDS: Finasteride 5 MG Tablet PO (08:55)
[2023-06-02] MEDS: APIXABAN 5 MG TABLET PO (08:56)
[2023-06-02] MEDS: Atenolol 50 MG Tablet PO (08:56)
--- NOTE | 2023-06-02 11:50 | CASEMGMT ---
SHERRIE YANES: This RN JOAQUÍN met with pt and pt's spouse at bedside. Pt states they live in a single story home and that he is independent with ADLs and denies any discharge needs at this time. Pt states he has the support of his and his son who is a assembler and tester electronics. Provided Eliquis pamphlet and 30day free co-pay card. Explained need to check his co-pay after the first 30 days. Pt and expressed understanding. Pt's requested that meds be filled at [facility] and use the Meds to Beds program. Pt's RN Larry notified of this request. DC Plan: Return home with the support of his and family. Eddy Storey RN CM
[2023-06-02 13:36] VITALS: BP 106/86; PULSE 85; RESP 14; TEMP 36.5
--- NOTE | 2023-06-02 14:59 | CASEMGMT ---
Met with patient to complete BARRERA form. BARRERA form explained to patient who voiced understanding and signed form. Original form placed in pt?s chart and copy provided to patient. Sylvia Alfaro, Discharge Planning Asst.
--- NOTE | 2023-06-02 15:50 | PCM.DC.SUM ---
Providers Date of Admission: 06/01/23 Date of Discharge: 06/02/23 Primary Care Physician: Dr. Urban Ward MD Reason For Visit: NEW ONSET A-FIB, PRESYNCOPE Diagnosis Discharge Diagnosis (1) Atrial fibrillation, new onset: Status: Acute Code(s): I48.91 - Unspecified atrial fibrillation Plan Patient is a 73-year-old male with history of hypertension, morbid obesity, BEN and BPH who presented to [facility] ED on 06/01/2023 with chest pain, dizziness and near syncope. 1. New onset A-fib, rate controlled -[id number] score of 2 (age, hypertension). Unclear on how long patient has been in A-fib patient is on atenolol discontinued started on systemic anticoagulation with apixaban echo ordered ? Echo demonstrated EF of 60% 2. Presyncope ? Thought to secondary to orthostatic hypotension resuscitated with IV fluid patient was on lisinopril and atenolol lisinopril held ? Lisinopril discontinued at this 3.. Class III obesity with BMI of 46.2 ? Complicating care weight loss advised 4. Essential hypertension ? Patient lisinopril held did continue with atenolol 5. Obstructive sleep apnea ? Consistent use of CPAP encouraged 6. BPH ? Patient is on finasteride 7. Anxiety disorder ? Patient is on lorazepam at night as needed 8. Allergic rhinitis ? Patient is on fexofenadine, continued 9. DVT prophylaxis ? On apixaban Time spent in the patient's overall evaluation,decision-making process, review of diagnostic data, adjustment of management, discussion with other providers, nursing nursing and ancillary staff involved in patient's care documentation,45Minutes Medications at Discharge Home Medications atenolol 50 mg tablet (Tenormin) 50 mg PO DAILY 06/10/18 fexofenadine 180 mg tablet 180 mg PO DAILY 06/10/18 finasteride 5 mg tablet 5 mg PO DAILY 08/22/19 lorazepam 2 mg tablet 1 mg PO QHS 09/14/19 fluticasone propionate 50 mcg/actuation nasal spray,suspension 1 spray intranasal BID 10/04/20 apixaban 5 mg tablet (Eliquis) 5 mg PO BID #60 tabs 06/02/23 Hospital Course Summary of Care Provided Minutes Spent on Discharge: 45 Physical Exam Narrative GENERAL: cooperative HEENT: Atraumatic; normocephalic EYES; Anicteric, Normal Conjunctiva NECK; supple, normal thyroid, RESPIRATORY: Diminished to auscultation CARDIOVASCULAR: Irregular S1-S2 GI: soft, normoactive bowel sounds, : No Renal angle tenderness; EXTREMITIES: No edema, no clubbing, MUSCULOSKELETAL: no muscle wasting NEURO: Awake; no lateralizing signs. SKIN: No Rash PSYCH; Flat affect Weight / BMI Weight Weight: 146 kg Body Mass Index (BMI) 46.1 ABG / Lab / Microbiology Data 06/01/23 16:25 06/01/23 16:25 Laboratory: Laboratory Results - last 24 hr 06/01/23 16:25: WBC 7.8, RBC 4.96, Hgb 14.8, Hct 44.6, MCV 89.9, MCH 29.8, MCHC 33.2, RDW Std Deviation 44.4 H, RDW Coeff of Collins 13.4, Plt Count 219, MPV 9.7, Immature Gran % (Auto) 0.500, Neut % (Auto) 64.4, Lymph % (Auto) 21.5, [place] % (Auto) 11.9 H, Eos % (Auto) 1.2, Baso % (Auto) 0.5, Absolute Neuts (auto) 5.0, Absolute Lymphs (auto) 1.67, Nucleated RBC % 0, D-Dimer Quant (PE/DVT) 0.34, Sodium 136, Potassium 4.1, Chloride 102, Carbon Dioxide 31.0, Anion Gap 3 L, BUN 23 H, Creatinine 1.34 H, Estim Creat Clear Calc 51.45, Est GFR (MDRD) Af Amer 67, Est GFR (MDRD) Non-Af 56 L, BUN/Creatinine Ratio 17.2, Glucose 94, Calcium 9.3, Troponin I High Sens 31, B-Natriuretic Peptide 152.7 H, TSH 1.36 06/01/23 18:55: Magnesium 2.3, Troponin I High Sens 28 Radiography Diagnostic Testing: Radiology Impression Chest X-Ray 06/01/23 17:03 IMPRESSION: No acute pulmonary finding. Electronically Signed: Jorje Chavarria MD at 17:18 EDT Reading Location ID and State: [facility] / [place] Tel , Service support , Echocardiogram 06/01/23 23:22 Interpretation Summary Normal LV size. Left ventricular systolic function is normal. The estimated ejection fraction is 60 %. The left atrium is mildly enlarged. Pulmonary artery systolic pressure is 34 mmHg. Ordering Physician: Eric Guevara Referring Physician: Urban Ward Performed By: Christina Lowry RDCS, RVT D/C Instructions Discharge Diet: No restrictions Discharge Activity: Return to Normal Activity Call your doctor if you observe: Fever of 101 or Higher, Shortness of breath, Fainting spells and Chest pain Meaningful Use Info Meaningful Use Diagnoses (Choose all that apply): None applicable Discharge Plan Admission Admit Date/Time: 06/01/23 20:42 Attending Provider: Sebastian Sandoval Primary Care Provider: Urban Ward Consulting Providers: Eric Guevara Discharge Orders/Prescriptions Prescriptions: New Eliquis 5 mg Tablet 5 mg PO BID Qty: 60 0RF Continued atenolol [Tenormin] 50 mg tablet 50 mg PO DAILY fexofenadine 180 mg tablet 180 mg PO DAILY finasteride 5 mg tablet 5 mg PO DAILY lorazepam 2 mg tablet 1 mg PO QHS fluticasone propionate 50 mcg/actuation spray,suspension 1 spray INTRANASAL BID Rx Instructions: administer into each nostril Discontinued lisinopril 20 mg tablet 20 mg PO DAILY Referrals / Follow Up: Urban Ward MD [Primary Care Provider] - Within 1 Week Disposition Disposition (needs filled in before D/C Order can be placed): Home, Self Care Charges/Coding Visit Charges Inpatient E&M: 54508 Disch Hosp >30min
[2023-06-02 15:51] VITALS: PULSE 63; RESP 14; TEMP 36.6; O2SAT 74
== END 2023-06-02 17:40 | disposition home or self-care (01) ==
LOC: ED 20:45 → PCU 21:26
PROVIDERS: Nurse Practitioner; Admitting Provider Hospitalist; Emergency Provider Emergency Medicine; PCP Family Medicine; Visit Provider Internal Medicine
DX: I48.91 Unspecified atrial fibrillation (principal); Z68.42 Body mass index [BMI] 45.0-49.9, adult; E66.01 Morbid (severe) obesity due to excess calories; I10 Essential (primary) hypertension; G47.33 Obstructive sleep apnea (adult) (pediatric); I95.1 Orthostatic hypotension; Z79.899 Other long term (current) drug therapy; R06.02 Shortness of breath; N40.0 Benign prostatic hyperplasia without lower urinary tract symptoms; F41.9 Anxiety disorder, unspecified
CPT/HCPCS: 71045; 80048; 83735; 83880; 84443; 84484; 85025; 85379; 93005; 93306; 96360; 99221; 99285; A4216; G0378

== ENCOUNTER → 2023-06-30 | Outpatient (CLI) | payer MEDICARE, OTHER, SELFPAY ==
--- NOTE | 2023-06-30 17:38 | STRESSREP ---
Stress Test Report Pharmacologic myocardial perfusion stress test. 73-year-old with history of chest pain and atrial fibrillation Resting EKG demonstrates sinus bradycardia with a rate of 57 bpm. Resting blood pressure is 110/64 mmHg. 0.4 mg of regadenoson was infused per usual protocol followed by rapid intravenous saline flush injection. Continuous EKG monitoring was performed. The maximum heart rate was 76 bpm which was 51% of max impacted heart rate the maximum workload was 1 metabolic equivalent. At rest there were no ST or T wave changes noted to suggest ischemia and at peak infusion nonspecific ST changes were noted which did not meet the criteria for ischemia. No clinical angina is noted. The final blood pressure was 102/60 mmHg. Myocardial perfusion protocol. 15 mCi of technetium 99m sestamibi was injected at rest. 0.4 mg of regadenoson was infused per usual protocol. At peak infusion 44.8 mCi of technetium 99m sestamibi was injected stress images were obtained stress and rest images were reconstructed and compared in the short axis vertical long and horizontal long axis. Gated images were also obtained. Perfusion SPECT analysis: Review of the stress images demonstrate normal uptake of tracer noted in all areas of the myocardium. The resting images similar demonstrated normal uptake of tracer noted in all areas of the myocardium. No areas of reversibility are noted to suggest ischemia and no previous infarct is noted. Gated SPECT analysis: The gated ejection fraction is 68%. Conclusion: Normal pharmacologic myocardial perfusion stress test. Preserved ejection fraction.
== END | disposition home or self-care (01) ==
LOC: CVS 06:11
PROVIDERS: PCP Family Medicine; Referring Provider Physician Assistant Medical; Visit Provider Physician Assistant Medical
DX: R07.9 Chest pain, unspecified (principal)
CPT/HCPCS: 78452; 93017; A9500; A4216; J2785

== ENCOUNTER → 2025-01-27 | Outpatient (CLI) | payer MEDICARE, OTHER, SELFPAY | END | disposition home or self-care (01) | LOC: SL 20:05 | PROVIDERS: PCP Family Medicine; Referring Provider Nurse Practitioner Acute Care; Visit Provider Nurse Practitioner Acute Care | DX: G47.33 Obstructive sleep apnea (adult) (pediatric) (principal) | CPT/HCPCS: 95811 ==

== ENCOUNTER 2025-02-09 07:27 | Day surgery (SDC) | payer MEDICARE, OTHER, SELFPAY ==
--- NOTE | 2025-02-06 16:39 | PAT.ANE_ITS ---
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 When Was Last Pacemaker Check QUESTION #4 FULL TEXT: You/Your Family Experience fever (hyperthermia) with Anesthesia Last Oral Intake Last Oral intake: Last Oral Intake NPO since Meds taken in AM with sips of water? Meds patient instructed to take am of surgery PONV PONV - maintenance mechanic telephone: PONV - maintenance mechanic telephone Female No 02/06/25 15:30 HX of Motion Sickness No 02/06/25 15:30 HX of N/V After Surgery No 02/06/25 15:30 Non-Smoker Yes 02/06/25 15:30 Duration of Surgery greater No 02/06/25 15:30 than 60 minutes Number of Risk Factors 1 02/06/25 15:30 PONV Score Low Risk 02/06/25 15:30 Height & Weight Height & Weight: Anesthesia: Height & Weight Height 5 ft 10 in 08/05/24 14:23 Respiratory Assessment Respiratory Assessment - maintenance mechanic telephone: Respiratory Tract Infection Hx - maintenance mechanic telephone Hx Respiratory Tract Infection No 02/06/25 15:30 STOP Sleep Apnea STOP Sleep Apnea - maintenance mechanic telephone: STOP Sleep Apnea - maintenance mechanic telephone Hx Hypertension Yes 02/06/25 15:30 Hx Sleep Apnea Yes 02/06/25 15:30 CPAP No 02/06/25 15:30 BIPAP Yes 02/06/25 15:30 Do you snore loudly (louder than talking or can be heard Do you often feel tired/ fatigued/ sleepy during daytime? Has anyone observed you stop breathing during sleep? STOP Results Positive 02/06/25 15:30 QUESTION #5 FULL TEXT : Do you snore loudly (louder than talking or can be heard through closed doors)? 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 Specify any problems Hx of Preganancy in last 3 N/A 02/06/25 15:30 Months Nurse Filling Out Transfusion JZOLLINGE 02/06/25 15:30 & Questions: Date: 02/06/25 02/06/25 15:30 Time: 15:32 02/06/25 15:30 Patient unable to answer at this time (ie. confused, unrespo /Reproduction History /Reproductive History - maintenance mechanic telephone: /Reproductive Hx- maintenance mechanic telephone Hx Now No 02/06/25 15:30 Gestational Age (in weeks): EDC: Hx Hx Para Hx Section SAB No 02/06/25 15:30 PFSH Medical History (Updated 02/06/25 @ 15:30 by Vanessa Rose) Wears glasses Cancer Prostate disease Non-smoker BiPAP (biphasic positive airway pressure) dependence Sleep apnea History of echocardiogram History of stress test Cardiology follow-up encounter PAF (paroxysmal atrial fibrillation) Knee pain Hay fever Arthritis Personal history of colonic polyps HTN (hypertension) Home Medications ?Medication ?Instructions ?Recorded ?Last Taken ?Type finasteride 5 mg tablet 5 mg PO DAILY prostate 08/22 Unknown History atenolol 50 mg tablet (Tenormin) 25 mg PO DAILY blood pressure 07/01/23 Unknown History fluticasone propionate 50 1 spray intranasal BID PRN 0 10/02/23 Unknown History mcg/actuation nasal allergies spray,suspension apixaban 5 mg tablet (Eliquis) 5 mg PO BID #180 tabs 1 09/10/23 Unknown Rx lisinopril 10 1 tab PO .QD 07/14/24 Unknow n History mg-hydrochlorothiazide 12.5 mg tablet vitamins A,C,D-bxqi-akwnbi 4,296 1 cap PO BID 07/14/24 Unknown History mcg-226 mg-90 mg capsule (PreserVision AREDS) lorazepam 1 mg tablet 1 mg PO QHS 01/10/25 Unknown History tamsulosin 0.4 mg capsule 0.4 mg PO QDAY 01/10/25 Unkn own History ketoconazole 2 % topical cream 1 applic topical BID Unknown History Allergy/AdvReac Type Severity Reaction Status Date / Time house dust Allergy Other Verified 02/06/25 15:17 ragweed pollen Allergy Other Verified 02/06/25 15:17 tramadol (From Ultram) Allergy Constipatio Verified 02/06/25 15:17 n tree and shrub pollen Allergy Other Verified 02/06/25 15:17 yeast, dried Allergy unknown Verified 02/06/25 15:17 Family History Father Heart disease Hypertension Myocardial infarction Mother Cancer Lung cancer Surgical History (Updated 02/06/25 @ 15:30 by Vanessa Rose) Hx of colonoscopy Status post lateral meniscus repair S/P laparoscopic cholecystectomy Social History Smoking Status: Never smoker alcohol intake: never Audit: Pertinent Findings Pertinent Findings EKG Perinent findings: 06/12/2023. Sinus rhythm RSR/V1 non diagnostic probably normal. Echo (EF%) pertinent findings: 06/01/2023. Normal size normal function EF 60%. Pulmonary artery systolic pressure 34. Consult pertinent findings: Cardiology. 02/03/2025. Hypertension. Well- controlled at this time. Paroxysmal atrial fibrillation. Continue atenolol and Eliquis. Recommendation Anesthesia Recommendation Anesthesia recommendation: OPTIMIZED for anesthesia
[2025-02-09] VITALS (7 sets, daily range): BP systolic 103–118; BP diastolic 61–64; PULSE 65–83; RESP 16–18; TEMP 36.2–37.2; O2SAT 95–100; BMI 47.2
--- NOTE | 2025-02-09 07:59 | PRE.ANES_ITS ---
ASA Classification* ASA Classification ASA Classification: 2 Assessment & Plan Anesthesia* Anesthesia Assessment Anesthesia Assessment: Discussed sedation and/or anesthesia options, risks, benefits, and alternatives with patient/parents/legal guardian/POA. Questions invited. The patient/parents/legal guardian/POA seems to understand and agrees to proceed with anesthesia plan. Reviewed the physical assessment, medical history, allergy history and patient home medications list prior to surgery/procedure/anesthetic and documented any changes. Performed airway and anesthesia risk assessments. Anesthesia Type Anesthesia Type: MAC Anesthesia Focused Assessment* Airway Assessment Mouth opens: >3 cm Mallampati Score: II Labs Anesthesia Preop lab: CBC WBC 7.8 K/mm3 (4.4-11.0) 06/01/23 16:25 06/01/23 RBC 4.96 M/mm3 (4.6-6.2) 06/01/23 16:25 06/01/23 Hgb 14.8 g/dL (13.0-16.5) 06/01/23 16:25 06/01/23 Hct 44.6 % (40-54) 06/01/23 16:25 06/01/23 Plt Count 219 K/mm3 (150-450) 06/01/23 16:25 06/01/23 CHEMISTRY Potassium 4.1 mmol/L (3.5-5.1) 06/01/23 16:25 06/01/23 Sodium 136 mmol/L (136-145) 06/01/23 16:25 06/01/23 Magnesium 2.3 mg/dL (1.6-2.6) 06/01/23 18:55 06/01/23 BUN 23 mg/dL (7-18) H 06/01/23 16:25 06/01/23 Creatinine 1.34 mg/dL (0.70-1.30) H 06/01/23 16:25 Glucose 94 mg/dL (74-106) 06/01/23 16:25 06/01/23 TSH 1.36 uIU/mL (0.358-3.74) 06/01/23 16:25 COAG Pre-Assessment Diagnosis/Proposed Procedure Planned Operative Procedure(s): Colonoscopy Anesthesia History 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 When Was Last Pacemaker Check QUESTION #4 FULL TEXT: You/Your Family Experience fever (hyperthermia) with Anesthesia Last Oral Intake Last Oral intake: Last Oral Intake NPO since Meds taken in AM with sips of water? 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 Female No 02/06/25 15:30 HX of Motion Sickness No 02/06/25 15:30 HX of N/V After Surgery No 02/06/25 15:30 Non-Smoker Yes 02/06/25 15:30 Duration of Surgery greater No 02/06/25 15:30 than 60 minutes Number of Risk Factors 1 02/06/25 15:30 PONV Score Low Risk 02/06/25 15:30 Height & Weight Height & Weight: Anesthesia: Height & Weight Height 5 ft 10 in 02/03/25 07:06 Respiratory Assessment Respiratory Assessment - heater operator: Respiratory Tract Infection Hx - heater operator Hx Respiratory Tract Infection No 02/06/25 15:30 STOP Sleep Apnea STOP Sleep Apnea - heater operator: STOP Sleep Apnea - heater operator Hx Hypertension Yes 02/06/25 15:30 Hx Sleep Apnea Yes 02/06/25 15:30 CPAP No 02/06/25 15:30 BIPAP Yes 02/06/25 15:30 Do you snore loudly (louder than talking or can be heard Do you often feel tired/ fatigued/ sleepy during daytime? Has anyone observed you stop breathing during sleep? STOP Results Positive 02/06/25 15:30 QUESTION #5 FULL TEXT : Do you snore loudly (louder than talking or can be heard through closed doors)? 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 Specify any problems Hx of Preganancy in last 3 N/A 02/06/25 15:30 Months Nurse Filling Out Transfusion JZOLLINGE 02/06/25 15:30 & Questions: Date: 02/06/25 02/06/25 15:30 Time: 15:32 02/06/25 15:30 Patient unable to answer at this time (ie. confused, unrespo /Reproduction History /Reproductive History - heater operator: /Reproductive Hx- heater operator Hx Now No 02/06/25 15:30 Gestational Age (in weeks): EDC: Hx Hx Para Hx Section SAB No 02/06/25 15:30 Active Medications Active Medications: Current Medications Generic Name Dose Route Start Last Admin Trade Name Freq PRN Reason Stop Dose Admin Lactated Ringer's 1,000 mls @ 15 mls/hr 02/09/25 07:45 IV .Q48H MARYURI PFSH Medical History Wears glasses Cancer Prostate disease Non-smoker BiPAP (biphasic positive airway pressure) dependence Sleep apnea History of echocardiogram History of stress test Cardiology follow-up encounter PAF (paroxysmal atrial fibrillation) Knee pain Hay fever Arthritis Personal history of colonic polyps HTN (hypertension) Home Medications ?Medication ?Instructions ?Recorded ?Last Taken ?Type finasteride 5 mg tablet 5 mg PO DAILY prostate 08/22 Unknown History atenolol 50 mg tablet (Tenormin) 25 mg PO DAILY blood pressure 07/01/23 Unknown History fluticasone propionate 50 1 spray intranasal BID PRN 0 10/02/23 Unknown History mcg/actuation nasal allergies spray,suspension apixaban 5 mg tablet (Eliquis) 5 mg PO BID #180 tabs 1 09/10/23 Unknown Rx lisinopril 10 1 tab PO .QD 07/14/24 Unknow n History mg-hydrochlorothiazide 12.5 mg tablet vitamins A,C,Y-tmxp-wnffnx 4,296 1 cap PO BID 07/14/24 Unknown History mcg-226 mg-90 mg capsule (PreserVision AREDS) lorazepam 1 mg tablet 1 mg PO QHS 01/10/25 Unknown History tamsulosin 0.4 mg capsule 0.4 mg PO QDAY 01/10/25 Unkn own History ketoconazole 2 % topical cream 1 applic topical BID Unknown History Allergy/AdvReac Type Severity Reaction Status Date / Time house dust Allergy Other Verified 02/09/25 07:58 ragweed pollen Allergy Other Verified 02/09/25 07:58 tramadol (From Ultram) Allergy Constipatio Verified 02/09/25 07:58 n tree and shrub pollen Allergy Other Verified 02/09/25 07:58 yeast, dried Allergy unknown Verified 02/09/25 07:58 Family History Father Heart disease Hypertension Myocardial infarction Mother Cancer Lung cancer Surgical History Hx of colonoscopy Status post lateral meniscus repair S/P laparoscopic cholecystectomy Social History Smoking Status: Never smoker alcohol intake: never Review of Systems (Anesthesia) ROS Narrative System reviewed and no additional complaints, except as documented.
[2025-02-09] MEDS: Lactated Ringers 1,000 ML 15 ML IV (08:01)
--- NOTE | 2025-02-09 08:30 | COLBX_PTH ---
PATIENT: ANTONIO ANDERSON Jr. LOC: EN U#:[id number] AGE/SX: 75/M ROOM: RE02/09/[address]: Dr. Eloy Sosa DO : 1950 BED: DIS: 02/09/2025 SPEC #: [id number] RECD: 02/09/25 11:01 STATUS: MICHELE REMari #: [id number] JESUS: 02/09/25 08:[address]: Eloy Sosa DEPT: SURGICAL PATHOLOGY RECD BY: Micha Michel ENTERED: 02/09/25 12:06 SP TYPE: COLON BX OTHR DR: Dr. Urban Ward MD Tissues: A - Ascending colon B - SPLENIC FLEXURE Procedures: Surgery Specimen Level IV HEADER OPERATION: Colonoscopy and polypectomy PRE-OP DIAGNOSIS: Screening TISSUE SUBMITTED: A- Ascending colon polyp x2, B- Splenic flexure biopsy MICROSCOPIC DIAGNOSIS A. Colon, ascending, polyp, biopsy: Tubular adenoma, multiple fragments. B. Colon, splenic flexure, biopsy: Tubular adenoma, multiple fragments. MICROSCOPIC DESCRIPTION Slides are reviewed. GROSS DESCRIPTION Received in 2 formalin containers labeled with the patient's name and date of . Designated as: A. Polyp ascending colon x 2 are 4 fitzgerald tissue fragments, 0.3 cm to 0.5 cm. Entirely submitted in 1 cassette. B. Splenic flexure BX are 6 fitzgerald tissue fragments, <0.1 cm to 0.4 cm. Entirely submitted in 1 cassette. Smallest fragments may not survive processing. [facility] [place]09/[place] CPT:36109r0
--- NOTE | 2025-02-09 08:41 | PCM.HP.STD ---
HPI - General General Date of Admission: 02/09/25 Date of Service: 02/09/25 Chief Complaint: Screening colonoscopy HPI Narrative Pt states he is due for screening colonoscopy. Last colonoscopy was 07.12.[address] Adam. Diverticulosis was noted. Is not having any current GI concerns. States he does have occasional constipation in which he takes Miralax for. [facility] Medical History Wears glasses Cancer Prostate disease Non-smoker BiPAP (biphasic positive airway pressure) dependence Sleep apnea History of echocardiogram History of stress test Cardiology follow-up encounter PAF (paroxysmal atrial fibrillation) Knee pain Hay fever Arthritis Personal history of colonic polyps HTN (hypertension) Home Medications ?Medication ?Instructions ?Recorded ?Last Taken ?Type finasteride 5 mg tablet 5 mg PO DAILY prostate 08/22/19 Unknown History atenolol 50 mg tablet (Tenormin) 25 mg PO DAILY blood pressure 07/01/23 02/08/25 History fluticasone propionate 50 1 spray intranasal BID PRN 10/02/23 Unknown History mcg/actuation nasal allergies spray,suspension apixaban 5 mg tablet (Eliquis) 5 mg PO BID #180 tabs 07/11/24 02/05/25 Rx lisinopril 10 1 tab PO .QD 07/14/24 Unknown History mg-hydrochlorothiazide 12.5 mg tablet vitamins A,C,G-wpxg-bzffua 4,296 1 cap PO BID 07/14/24 Unknown History mcg-226 mg-90 mg capsule (PreserVision AREDS) lorazepam 1 mg tablet 1 mg PO QHS 01/10/25 Unknown History tamsulosin 0.4 mg capsule 0.4 mg PO QDAY 01/10/25 Unknown History ketoconazole 2 % topical cream 1 applic topical BID 02/06/25 Unknown History Allergy/AdvReac Type Severity Reaction Status Date / Time house dust Allergy Other Verified 02/09/25 07:58 ragweed pollen Allergy Other Verified 02/09/25 07:58 tramadol (From Ultram) Allergy Constipatio Verified 02/09/25 07:58 n tree and shrub pollen Allergy Other Verified 02/09/25 07:58 yeast, dried Allergy unknown Verified 02/09/25 07:58 Family History Father Heart disease Hypertension Myocardial infarction Mother Cancer Lung cancer Surgical History Hx of colonoscopy Status post lateral meniscus repair S/P laparoscopic cholecystectomy Social History Smoking Status: Never smoker alcohol intake: never ROS Constitutional Constitutional: Denies fatigue, fever(s), poor appetite, weight gain or weight loss Gastrointestinal Gastrointestinal: Denies belching, bloating, change in bowel habits, change in stool character, chewing difficulty, coffee ground emesis, constipation, cramping, diarrhea, dyspepsia, dysphagia, early satiety, excessive flatus, fecal incontinence, heartburn, hematemesis, hematochezia, hemorrhoids, loose stools, melena, nausea, odynophagia, rectal bleeding, tenesmus, vomiting or weight changes Vital Signs Vital Signs Vital Signs: 02/09/25 08:01 02/09/25 08:01 Temperature 98.2 F Temperature Source Temporal Pulse Rate 83 Respiratory Rate 16 Respiratory Pattern Normal Blood Pressure 105/64 Blood Pressure Mean 77 Blood Pressure Source Monitor Blood Pressure Position Semi-Fowlers Blood Pressure Location Right Arm Pulse Ox 100 Oxygen Delivery Method Room Air Weight Weight: 329 lb 2.402 oz Body Mass Index (BMI) 47.2 Physical Exam Const alert, oriented x3, no apparent distress and healthy appearing General Appearance: cooperative GI normal to inspection, nondistended, normoactive bowel sounds, soft to palpation, non-tender and non-distended Percussion: normal to percussion Rectal Exam: deferred Assessment & Plan Assessment/Plan (1) Encounter for screening for malignant neoplasm of colon: PLAN: Assessment and Plan Assessment and Plan (1) Encounter for screening for malignant neoplasm of colon: Status: Acute Plan: He will undergo screening colonoscopy. He will stop his Eliquis approximately 3 days prior to procedure. He was explained and alternatives, risk, benefits include not withstanding bleeding, infection, sepsis, perforation, need for emergent urgent . He will have an ASA of 3.
--- NOTE | 2025-02-09 09:25 | OP.CCLET_ITS ---
02/09/2025 Urban Ward [address] [place] [address] Re : Colonoscopy procedure for Job Ledesma Dear Dr. Ward This procedure was performed on January. My impressions and recommendations are as follows: Impressions : - Diverticulosis in the recto-sigmoid colon and in the sigmoid colon. - One 9 mm polyp in the sigmoid colon, removed with a hot snare. Resected and retrieved. - Three 6 mm polyps in the ascending colon, removed with a jumbo cold forceps. Resected and retrieved. Recommendations : - Repeat colonoscopy in 5 years for surveillance. - Continue present medications. My findings are described in the full procedure note, which is enclosed. If I can be of further assistance, please feel free to contact me at . Sincerely, Eloy Sosa, 02/09/2025 9:24:54 AM This report has been signed electronically.
--- NOTE | 2025-02-09 09:25 | OP.COLON_ITS ---
Patient Name: Job Ledesma Procedure Date: 02/09/2025 8:48 AM Date of : 1950 Age: 75 Procedure: Colonoscopy Indications: High risk colon cancer surveillance: Personal history of colonic polyps Providers: Eloy Sosa DO Referring MD: Urban Ward Medicines: Monitored Anesthesia Care Patient Profile: This is a 75 year old male. Refer to note in patient chart for documentation of history and physical. Last Colonoscopy: 5 years ago. Complications: No immediate complications. Procedure: Pre-Anesthesia Assessment: - Prior to the procedure, a History and Physical was performed, and patient medications and allergies were reviewed. The patient is competent. The risks and benefits of the procedure and the sedation options and risks were discussed with the patient. All questions were answered and informed consent was obtained. Patient identification and proposed procedure were verified by the physician in the pre-procedure area. Mental Status Examination: alert and oriented. Airway Examination: normal oropharyngeal airway and neck mobility. Respiratory Examination: clear to auscultation. CV Examination: normal. Prophylactic Antibiotics: The patient does not require prophylactic antibiotics. Prior Anticoagulants: The patient has taken no anticoagulant or antiplatelet agents. ASA Grade Assessment: II - A patient with mild systemic disease. After reviewing the risks and benefits, the patient was deemed in satisfactory condition to undergo the procedure. The anesthesia plan was to use monitored anesthesia care (MAC). Immediately prior to administration of medications, the patient was re-assessed for adequacy to receive sedatives. The heart rate, respiratory rate, oxygen saturations, blood pressure, adequacy of pulmonary ventilation, and response to care were monitored throughout the procedure. The physical status of the patient was re-assessed after the procedure. After I obtained informed consent, the scope was passed under direct vision. Throughout the procedure, the patient's blood pressure, pulse, and oxygen saturations were monitored continuously. The colonoscope was introduced through the anus and advanced to the cecum, identified by appendiceal orifice and ileocecal valve. The colonoscopy was performed without difficulty. The patient tolerated the procedure well. The quality of the bowel preparation was adequate. The ileocecal valve, appendiceal orifice, and rectum were photographed. Scope In: 8:57:11 AM Scope Withdrawal Time 0 hours 10 minutes 35 seconds Scope Out: 9:17:36 AM Total Procedure Duration Time 0 hours 20 minutes 25 seconds Findings: The perianal and digital rectal examinations were normal. A few small-mouthed diverticula were found in the recto-sigmoid colon and sigmoid colon. A 9 mm polyp was found in the sigmoid colon. The polyp was sessile. The polyp was removed with a hot snare. Resection and retrieval were complete. Verification of patient identification for the specimen was done. Estimated blood loss was minimal. Three sessile polyps were found in the ascending colon. The polyps were 6 mm in size. These polyps were removed with a jumbo cold forceps. Resection and retrieval were complete. Verification of patient identification for the specimen was done. Estimated blood loss: none. Impression: - Diverticulosis in the recto-sigmoid colon and in the sigmoid colon. - One 9 mm polyp in the sigmoid colon, removed with a hot snare. Resected and retrieved. - Three 6 mm polyps in the ascending colon, removed with a jumbo cold forceps. Resected and retrieved. Recommendation: - Repeat colonoscopy in 5 years for surveillance. - Continue present medications. Procedure Code(s): --- Professional --- 52199, Colonoscopy, flexible; with removal of tumor(s), polyp(s), or other lesion(s) by snare technique 40630, 59, Colonoscopy, flexible; with biopsy, single or multiple CPT copyright 2021 [employer]. All rights reserved. The codes documented in this report are preliminary and upon surgical coder review may be revised to meet current compliance requirements. Eloy Sosa DO 02/09/2025 9:24:54 AM This report has been signed electronically. Number of Addenda: 0 Note Initiated On: 02/09/2025 8:48 AM
--- NOTE | 2025-02-09 09:27 | PCM.POST.ANE ---
Anesthesia: Postop Eval I Current Vital Signs Temperature: 97.1 F Pulse Rate: 67 Blood Pressure: 108/61 Respiratory Rate: 16 Pulse Ox: 96 Oxygen Delivery Method: Room Air Assessment Airway patent: Yes Spontaneous unlabored respirations: Yes Mental status: Awake and Calm nausea: No Vomiting: No Anesthesia Complication: No Fluid Hydration Crystalloid volume administer (ml): 400 Total IV fluid infused: 400 Progress Note Anesthesia document: Postop Eval 1 completed: Yes
--- NOTE | 2025-02-09 10:58 | PCM.POSTANE2 ---
Anesthesia Postop Eval I Sum Postop Eval Completion status Anesthesia document: Postop Eval 1 completed: Yes Anesthesia Postop Eval I Summary Anesthesia Postop Eval I Summary: Anesthesia Postop Eval I: Assessment Summary Airway patent Yes 02/09/25 09:29 [email or web address] Spontaneous unlabored Yes 02/09/25 09:29 [email or web address] respirations Mental status Awake,Calm 02/09/25 09:29 [email or web address] nausea No 02/09/25 09:29 [email or web address] Vomiting No 02/09/25 09:29 [email or web address] Anesthesia Postop Eval I: Fluid Summary Crystalloid volume administer 400 02/09/25 09:29 [email or web address] (ml) Colloids volume administered ( ml) Blood Product volume administered (ml) Total IV fluid infused 400 02/09/25 09:29 [email or web address] Anesthesia Postop Eval I: Summary Notes Anesthesia Complication No 02/09/25 09:29 [email or web address] Anesthesia Complication Comment: Post-operative progress note Anesthesia: Postop Eval II Evaluation Mental status: Awake Pain Level: 0 nausea: No Vomiting: No
== END 2025-02-09 09:57 | disposition home or self-care (01) ==
LOC: EN 07:29 → AC 07:30
PROVIDERS: PCP Family Medicine; Referring Provider Family Medicine; Visit Provider Internal Medicine Gastroenterology
PROC: 0DJD8ZZ Inspection of Lower Intestinal Tract, Via Natural or Artificial Opening Endoscopic (ICD-10-PCS; CPT 45378; principal; 2025-02-09 08:25)
DX: Z12.11 Encounter for screening for malignant neoplasm of colon (principal); I48.0 Paroxysmal atrial fibrillation; K63.5 Polyp of colon; Z86.0100 Personal history of colon polyps, unspecified; I10 Essential (primary) hypertension; Z79.01 Long term (current) use of anticoagulants; K57.30 Diverticulosis of large intestine without perforation or abscess without bleeding; D12.2 Benign neoplasm of ascending colon; D12.3 Benign neoplasm of transverse colon
CPT/HCPCS: 45385; 45380; 88305; J2405

== ENCOUNTER 2025-07-02 13:16 | Emergency (ER) | payer MEDICARE, OTHER, SELFPAY ==
[2025-07-02 13:17] VITALS: BP 116/65; PULSE 88; RESP 20; TEMP 36.4; O2SAT 97; BMI 49.1
--- NOTE | 2025-07-02 13:19 | EKG12_ITS ---
Test Reason : PALPS
[2025-07-02 13:40] LABS: Hematocrit 39.7 % (40-54); Hemoglobin 13.3 g/dL (13.0-16.5); Immature Granulocytes Count 0.030 X10^3/uL (0.0-0.0); Mean Corp Hgb Conc 33.5 g/dL (32-36); Mean Corpuscular Volume 88.4 fL (80-94); Mean Platelet Vol. 9.1 fl (6.2-12.0); NRBC Flagged by Analyzer 0 % (0-5); Platelet Count 186 K/mm3 (150-450); RBC Distribution Width CV 13.5 % (11.6-14.6); RBC Distribution Width SD 43.8 fl (35.1-43.9); Red Blood Count 4.49 M/mm3 (4.6-6.2); White Blood Count 7.7 K/mm3 (4.4-11.0)
[2025-07-02 13:50] LABS: Prothrombin Time (Protime)PT. 15.8 SECONDS (11.7-14.9)
[2025-07-02 14:00] LABS: Anion Gap 9 (5-15); BUN 23 mg/dL (4-19); BUN/Creat Ratio 19.6 RATIO (10-20); Calcium,Total 9.0 mg/dL (7.6-11.0); Carbon Dioxide 26.0 mmol/L (21.0-32.0); Chloride 102 mmol/L (98-108); Estimated Creatinine Clearance 82.31 ml/min (50-250); Glucose 129 mg/dL (70-99); Potassium 4.1 mmol/L (3.3-5.1); Troponin T High Sensitivity 14 ng/L (<=22)
--- NOTE | 2025-07-02 14:00 | RAD_ITS ---
PROCEDURE: RAD/Chest PA and Lateral
[2025-07-02 15:00] VITALS: BP 109/67; PULSE 87; RESP 16; O2SAT 96
--- NOTE | 2025-07-02 15:03 | ED.VIS.CHEST ---
HPI History of Present Illness Chief Complaint: Palpitations Detail of Chief Complaint: Palpitations, chest pressure and right arm discomfort Informant: patient and spouse/S.O. Onset/Context/Timing Onset: Yesterday Activity at onset: light activity Timing: Intermittent and Lasts (2 hours with respect to the chest pain. He still reports right arm aching.) Quality: Positive for Pressure Location: Substernal Current Severity: Gone Maximum Severity: Moderate Worsened By: Nothing Relieved By: Nothing Associated Symptoms: Positive for Dyspnea and Lightheadedness; Negative for Nausea, Vomiting, Diaphoresis, Cough, Fever, Acid Reflux or Palpitations Narrative Narrative: Patient is a 75-year-old male. He has history of obstructive sleep apnea, paroxysmal atrial fibrillation on apixaban, hypertension, who presents with chest tightness/pressure that started last evening when he was walking to his son's house to check on the dog since they are on vacation. He states he experienced some shortness of breath and aching in his right upper extremity. The ache in his right upper extremity is still present. He also states when he got back to his house which was 2 hours later he checked his heart rate and it was detected to be atrial fibrillation. He denies orthopnea or PND. He does have a history of chronic edema with venous stasis dermatitis right and left lower extremity. He denies history of coronary disease. He has no stents. States he has never had an MO. He denies leg pain or swelling from baseline. He did report lightheadedness when this occurred. Prior Similar Symptoms: Yes CVD Risk Factors: Positive for Hypertension and Hypercholesterolemia PE Risk Factors: Negative for Recent Travel/Surgery, Recent Immobilization, Prior DVT or PE, Cancer or OCP + Smoking + >/=35 TAD Risk Factors: Positive for Hypertension; Negative for Marfan's Syndrome or Family History [facility] Medical History Wears glasses Cancer Prostate disease Non-smoker BiPAP (biphasic positive airway pressure) dependence Sleep apnea History of echocardiogram History of stress test Cardiology follow-up encounter PAF (paroxysmal atrial fibrillation) Knee pain Hay fever Arthritis Personal history of colonic polyps HTN (hypertension) Home Medications ?Medication ?Instructions ?Recorded ?Last Taken ?Type finasteride 5 mg tablet 5 mg PO DAILY prostate 08/22/19 Unknown History atenolol 50 mg tablet (Tenormin) 25 mg PO DAILY blood pressure 07/01/23 02/08/25 History fluticasone propionate 50 1 spray intranasal BID PRN 10/02/23 Unknown History mcg/actuation nasal allergies spray,suspension apixaban 5 mg tablet (Eliquis) 5 mg PO BID #180 tabs 07/11/24 02/05/25 Rx lisinopril 10 1 tab PO .QD 07/14/24 Unknown History mg-hydrochlorothiazide 12.5 mg tablet vitamins A,C,H-zimu-syvfkt 4,296 1 cap PO BID 07/14/24 Unknown History mcg-226 mg-90 mg capsule (PreserVision AREDS) lorazepam 1 mg tablet 1 mg PO QHS 01/10/25 Unknown History tamsulosin 0.4 mg capsule 0.4 mg PO QDAY 01/10/25 Unknown History ketoconazole 2 % topical cream 1 applic topical BID 02/06/25 Unknown History Allergy/AdvReac Type Severity Reaction Status Date / Time house dust Allergy Other Verified 07/02/25 13:17 ragweed pollen Allergy Other Verified 07/02/25 13:17 tramadol (From Ultram) Allergy Constipatio Verified 07/02/25 13:17 n tree and shrub pollen Allergy Other Verified 07/02/25 13:17 yeast, dried Allergy unknown Verified 07/02/25 13:17 Family History Father Heart disease Hypertension Myocardial infarction Mother Cancer Lung cancer Surgical History Hx of colonoscopy Status post lateral meniscus repair S/P laparoscopic cholecystectomy Social History housing: house Smoking Status: Never smoker alcohol intake: never ROS ROS ED Constitutional Constitutional ED: Denies chills, fever(s), subjective or sweats ENT ENT ED: Denies ear pain, rhinorrhea or sore throat Cardiovascular Cardiovascular: Reports as per HPI; Denies orthopnea or paroxysmal nocturnal dyspnea Respiratory/Chest Respiratory/Chest: Reports dyspnea; Denies cough, dyspnea on exertion, orthopnea or paroxysmal nocturnal dyspnea Gastrointestinal Gastrointestinal: Denies abdominal pain, constipation, diarrhea, melena or nausea Musculoskeletal Musculoskeletal: Denies arthralgias, back pain or myalgias Integumentary Denies rash Neurologic Neurologic: Reports other Details: Patient states he does not feel well. ; Denies headache(s) or paresthesias Psychiatric Psychiatric: Denies anxiety or depression Endocrine Endocrinology: Denies cold intolerance or heat intolerance Hematologic/Lymphatic Hematologic/Lymphatic: Denies easy bleeding or easy bruising EXAM Physical Exam Const Vital Signs: 07/02/25 13:17 07/02/25 15:00 07/02/25 15:00 Temperature 97.6 F L Temperature Source Temporal Pulse Rate 88 87 Respiratory Rate 20 H 16 Respiratory Effort Blood Pressure 116/65 109/67 Blood Pressure Mean 82 81 Pulse Ox 97 96 96 Oxygen Delivery Method Room Air Room Air 07/02/25 15:00 07/02/25 16:00 Temperature Temperature Source Pulse Rate 76 Respiratory Rate 16 Respiratory Effort Normal Non-Labored Blood Pressure 98/51 L Blood Pressure Mean 66 Pulse Ox 97 Oxygen Delivery Method Positive well nourished and well developed Constitutional Narrative: BMI 49.2 General Appearance ED: well developed and NAD HEENT Reports TM's clear and moist mucous membranes normocephalic and atraumatic Tympanic Membrane ED: Yes TM's clear Eyes PERRL and EOMs intact bilaterally General Eye ED: Negative for pale conjunctiva or scleral icterus Neck no lymphadenopathy, supple and no JVD Chest Wall inspection of chest normal and palpation of chest normal Resp normal respiratory effort and clear to auscultation bilaterally Cardio regular rate and no murmurs Rhythm: abnormal rhythm irregularly irregular GI normal to inspection, nondistended, normoactive bowel sounds, non-tender, non-distended and no masses; Negative for hepatosplenomegaly Extremity Negative for normal to inspection Extremity Narrative: Venous stasis dermatitis with pitting edema. Neuro oriented x3 and CN's II-XII intact bilaterally Sensorium / Orientation: awake Skin no rashes or lesions noted and no wounds MDM MDM MDM Narrative Medical decision making narrative: Differential diagnosis is cardiac versus noncardiac. Noncardiac would be pneumonia, pneumothorax, doubt pulmonary embolus, GI etiology which would include reflux, peptic ulcer disease. In light of his risk factors and reported history need to rule out cardiac. As may be due to A-fib. At this time his rate is normal. His rate may have been fast last evening. Will obtain EKG, chest x-ray and appropriate blood work including serial troponins. Lab Data Lab results narrative: CBC is unremarkable. There is no evidence of anemia or white count. Coags are unremarkable. Basic metabolic panel is unremarkable. BUN is slight limited 23. Glucose is elevated 129 with a normal CO2 anion gap. 2-hour troponin is 13 with a delta of -1. Patient was informed of results. He will be discharged to home. Labs: Laboratory Results - last 24 hr 07/02/25 07/02/25 13:32 15:29 WBC 7.7 RBC 4.49 L Hgb 13.3 Hct 39.7 L MCV 88.4 MCH 29.6 MCHC 33.5 RDW Std Deviation 43.8 RDW Coeff of Collins 13.5 Plt Count 186 MPV 9.1 Immature Gran % (Auto) 0.400 Neut % (Auto) 73.3 H Lymph % (Auto) 15.9 L [place] % (Auto) 8.1 Eos % (Auto) 1.8 Baso % (Auto) 0.5 Absolute Neuts (auto) 5.6 Absolute Lymphs (auto) 1.22 Nucleated RBC % 0 PT 15.8 H INR 1.2 Sodium 137 Potassium 4.1 Chloride 102 Carbon Dioxide 26.0 Anion Gap 9 BUN 23 H Creatinine 1.18 Estim Creat Clear Calc 82.31 Est GFR (MDRD) Non-Af 65 BUN/Creatinine Ratio 19.6 Glucose 129 H Calcium 9.0 Troponin T High Sens 14 Troponin T Hi Sens 2 Hr 13 Radiography Chest X-Ray - ED: 1 View and Read by ED Physician (Chest x-ray reveals no acute findings. Cardiac silhouette and size are normal. Lung parenchyma is normal. Hilum is normal. Osseous structures reveal no acute process.) Diagnostic Testing: Clinical Impression(s) from Imaging Studies Chest X-Ray 07/02/25 14:00 IMPRESSION: Negative chest. [facility] EKG Initial EKG: Attestation: I personally reviewed and interpreted this EKG as follows: Interpretation: Atrial Fibrillation (Rate is 88. QRS duration is 90 ms. QT is 354 ms. [place] is the left) Treatment and Re-Evaluation :: Patient was instructed follow-up with Dr. Yañez. Discharge Plan Triage Chief Complaint: Palpitations ED Provider: Valentin Maynard Dx/Rx/DC Orders Clinical Impression: Atrial fibrillation, Chest pressure, HTN (hypertension), BEN (obstructive sleep apnea), Venous stasis, Anticoagulant long-term use Instructions: ED AFIB, ED Chest Pain, Uncertain Cause Prescriptions: No Action finasteride 5 mg tablet 5 mg PO DAILY fluticasone propionate 50 mcg/actuation spray,suspension 1 spray INTRANASAL BID PRN (Reason: allergies) Rx Instructions: administer into each nostril tamsulosin 0.4 mg capsule 0.4 mg PO QDAY lisinopril-hydrochlorothiazide 10-12.5 mg tablet 1 tab PO .QD PreserVision AREDS 4,296 mcg-226 mg-90 mg capsule 1 cap PO BID lorazepam 1 mg tablet 1 mg PO QHS Patient Comments: [NO ORIGINAL SIG] ketoconazole 2 % cream 1 applic topical BID atenolol [Tenormin] 50 mg tablet 25 mg PO DAILY Eliquis 5 mg tablet 5 mg PO BID Qty: 180 3RF Primary Care Provider: Elidia Brush Referrals: Sandeep Yañez MD [Med Staff - Active Staff, Cardiology] - 5-7 Days Raúl Hale MD [Med Staff - Active Staff, Internal Medicine] Print Language: Czech Disposition Disposition: Home, Self Care
[2025-07-02 16:00] VITALS: BP 98/51; PULSE 76; RESP 16; O2SAT 97
[2025-07-02 16:10] LABS: Troponin T High Sens 2 HR 13 ng/L (<=22)
[2025-07-02 16:53] VITALS: BP 122/71; PULSE 77; RESP 18; TEMP 36.8; O2SAT 99
== END 2025-07-02 16:54 | disposition home or self-care (01) ==
PROVIDERS: Emergency Provider Emergency Medicine; PCP Pediatrics; Visit Provider Emergency Medicine
DX: I48.91 Unspecified atrial fibrillation (principal); E78.00 Pure hypercholesterolemia, unspecified; R00.2 Palpitations; I10 Essential (primary) hypertension; I87.8 Other specified disorders of veins; Z79.01 Long term (current) use of anticoagulants; G47.33 Obstructive sleep apnea (adult) (pediatric); R07.89 Other chest pain; Z99.81 Dependence on supplemental oxygen; Z79.899 Other long term (current) drug therapy; Z90.49 Acquired absence of other specified parts of digestive tract
CPT/HCPCS: 71046; 80048; 84484; 85025; 85610; 93005; 99284; A4216

== ENCOUNTER 2025-07-17 10:47 | Day surgery (SDC) | payer MEDICARE, OTHER, SELFPAY ==
--- NOTE | 2025-07-10 13:49 | PAT.ANESEVAL ---
Pre-Assessment Diagnosis/Proposed Procedure Planned Operative Procedure(s): Septoplasty and FESS Anesthesia History Anesthesia History - assembler rubber footwear: Anesthesia History - assembler rubber footwear Hx Hospitalization No 07/10/25 10:41 Any Problems With Anesthesia No 07/10/25 10:41 Cholinesterase deficiency No 07/10/25 10:41 You/Your Family Experience No 07/10/25 10:41 fever (hyperthermia) with Relationship Recent Exposure to Contagious No 02/09/25 08:01 Disease Does patient have nerve No 07/10/25 10:41 stimulator Patient instructed to have device shut off --Does patient have Pacemaker or ICD? When Was Last Pacemaker Check QUESTION #4 FULL TEXT: You/Your Family Experience fever (hyperthermia) with Anesthesia Last Oral Intake Last Oral intake: Last Oral Intake NPO since Meds taken in AM with sips of water? Meds patient instructed to take am of surgery PONV PONV - assembler rubber footwear: PONV - assembler rubber footwear Female No 07/10/25 10:41 HX of Motion Sickness No 07/10/25 10:41 HX of N/V After Surgery No 07/10/25 10:41 Non-Smoker Yes 07/10/25 10:41 Duration of Surgery greater No 07/10/25 10:41 than 60 minutes Number of Risk Factors 1 07/10/25 10:41 PONV Score Low Risk 07/10/25 10:41 Height & Weight Height & Weight: Anesthesia: Height & Weight Height 5 ft 10 in 05/15/25 09:28 Respiratory Assessment Respiratory Assessment - assembler rubber footwear: Respiratory Tract Infection Hx - assembler rubber footwear Hx Respiratory Tract Infection No 07/10/25 10:41 STOP Sleep Apnea STOP Sleep Apnea - assembler rubber footwear: STOP Sleep Apnea - assembler rubber footwear Hx Hypertension Yes 07/10/25 10:41 Hx Sleep Apnea Yes 07/10/25 10:41 CPAP Yes 07/10/25 10:41 BIPAP No 07/10/25 10:41 Do you snore loudly (louder than talking or can be heard Do you often feel tired/ fatigued/ sleepy during daytime? Has anyone observed you stop breathing during sleep? STOP Results Positive 07/10/25 10:41 QUESTION #5 FULL TEXT : Do you snore loudly (louder than talking or can be heard through closed doors)? Tobacco Use History Tobacco Use History - assembler rubber footwear: Tobacco Use History - assembler rubber footwear Tobacco Use Smoking Status Never smoker 07/10/25 10:41 Hx Tobacco Use No 07/10/25 10:41 Years Smoking Packs Smoked per Day Smoking Cessation Date was within the last 15 years Hx Smoking Cessation Date Hx Smoking Cessation Counseling Hematologic Medial History Hematologic Hx - assembler rubber footwear: Hematologic Medical Hx - pivot end polisher Hx of Blood Transfusion No 07/10/25 10:41 Hx of Transfusion in last 3 No 07/10/25 10:41 Months Date of Last Transfusion (if within last 3 months) Ever experience any problems No 07/10/25 10:41 with transfusion(s)? Specify any problems Hx of Preganancy in last 3 N/A 07/10/25 10:41 Months Nurse Filling Out Transfusion JZOLLINGE 07/10/25 10:41 & Questions: Date: 07/10/25 07/10/25 10:41 Time: 10:42 07/10/25 10:41 Patient unable to answer at this time (ie. confused, unrespo /Reproduction History /Reproductive History - assembler rubber footwear: /Reproductive Hx- assembler rubber footwear Hx Now No 07/10/25 10:41 Gestational Age (in weeks): EDC: Hx Hx Para Hx Section SAB No 07/10/25 10:41 Does the father of the baby or his family experience fever w Father of the baby Malignant [facility] History Wears glasses Cancer Prostate disease Non-smoker BiPAP (biphasic positive airway pressure) dependence Sleep apnea History of echocardiogram History of stress test Cardiology follow-up encounter PAF (paroxysmal atrial fibrillation) Knee pain Hay fever Arthritis Personal history of colonic polyps HTN (hypertension) Home Medications Medication Instructions Recorded Last Taken Type finasteride 5 mg tablet 5 mg PO DAILY prostate 08/22/19 Unknown History atenolol 50 mg tablet (Tenormin) 25 mg PO DAILY blood pressure 07/01/23 02/08/25 History fluticasone propionate 50 1 spray intranasal BID PRN 10/02/23 Unknown History mcg/actuation nasal allergies spray,suspension lisinopril 10 1 tab PO .QD 07/14/24 Unknown History mg-hydrochlorothiazide 12.5 mg tablet vitamins A,C,A-mxwy-icaxvv 4,296 1 cap PO BID 07/14/24 Unknown History mcg-226 mg-90 mg capsule (PreserVision AREDS) lorazepam 1 mg tablet 1 mg PO QHS 01/10/25 Unknown History tamsulosin 0.4 mg capsule 0.4 mg PO QDAY 01/10/25 Unknown History apixaban 5 mg tablet (Eliquis) 5 mg PO BID #180 tabs 07/10/25 Unknown Rx Allergy/AdvReac Type Severity Reaction Status Date / Time house dust Allergy Other Verified 07/10/25 10:35 ragweed pollen Allergy Other Verified 07/10/25 10:35 tramadol (From Ultram) Allergy Constipatio Verified 07/10/25 10:35 n tree and shrub pollen Allergy Other Verified 07/10/25 10:35 yeast, dried Allergy unknown Verified 07/10/25 10:35 Family History Father Heart disease Hypertension Myocardial infarction Mother Cancer Lung cancer Surgical History Hx of colonoscopy Status post lateral meniscus repair S/P laparoscopic cholecystectomy Social History housing: house Smoking Status: Never smoker alcohol intake: never Audit: Pertinent Findings HISTORY of Pertinent Findings History of Pertinent Findings: He was admitted to the hospital on 06/01/2023 with new onset of atrial fibrillation.He converted on his own. He also has a history of hypertension, morbid obesity, and obstructive sleep apnea. He did have an echocardiogram which demonstrated a preserved ejection fraction of 60% Pertinent Findings EKG Perinent findings: 07-02-25: Afib with LAD Stress test pertinent findings: Stress Test 06/30/2023: Pharmacologic myocardial perfusion stress test. 73-year-old with history of chest pain and atrial fibrillation Resting EKG demonstrates sinus bradycardia with a rate of 57 bpm. Resting blood pressure is 110/64 mmHg. 0.4 mg of regadenoson was infused per usual protocol followed by rapid intravenous saline flush injection. Continuous EKG monitoring was performed. The maximum heart rate was 76 bpm which was 51% of max impacted heart rate the maximum workload was 1 metabolic equivalent. At rest there were no ST or T wave changes noted to suggest ischemia and at peak infusion nonspecific ST changes were noted which did not meet the criteria for ischemia. No clinical angina is noted. The final blood pressure was 102/60 mmHg. Myocardial perfusion protocol. 15 mCi of technetium 99m sestamibi was injected at rest. 0.4 mg of regadenoson was infused per usual protocol. At peak infusion 44.8 mCi of technetium 99m sestamibi was injected stress images were obtained stress and rest images were reconstructed and compared in the short axis vertical long and horizontal long axis. Gated images were also obtained. Perfusion SPECT analysis: Review of the stress images demonstrate normal uptake of tracer noted in all areas of the myocardium. The resting images similar demonstrated normal uptake of tracer noted in all areas of the myocardium. No areas of reversibility are noted to suggest ischemia and no previous infarct is noted. Gated SPECT analysis: The gated ejection fraction is 68%. Conclusion: Normal pharmacologic myocardial perfusion stress test. Preserved ejection fraction. Echo (EF%) pertinent findings: Echocardiogram 06/01/2023: Normal LV size. Left ventricular systolic function is normal. The estimated ejection fraction is 60 %. The left atrium is mildly enlarged. Pulmonary artery systolic pressure is 34 mmHg Recommendation Anesthesia Recommendation Anesthesia recommendation: Anesthesia NOT approved Reason NOT optimized for anesthesia: Patient is in afib, when his baseline is not afib. He needs follow up with Dr. 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
--- NOTE | 2025-07-13 13:50 | PAT.ANE_ITS ---
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 When Was Last Pacemaker Check QUESTION #4 FULL TEXT: You/Your Family Experience fever (hyperthermia) with Anesthesia Last Oral Intake Last Oral intake: Last Oral Intake NPO since Meds taken in AM with sips of water? 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: PONV - automatic punch press operator Female No 07/10/25 10:41 HX of Motion Sickness No 07/10/25 10:41 HX of N/V After Surgery No 07/10/25 10:41 Non-Smoker Yes 07/10/25 10:41 Duration of Surgery greater No 07/10/25 10:41 than 60 minutes Number of Risk Factors 1 07/10/25 10:41 PONV Score Low Risk 07/10/25 10:41 Height & Weight Height & Weight: Anesthesia: Height & Weight Height 5 ft 10 in 07/02/25 13:17 Respiratory Assessment Respiratory Assessment - automatic punch press operator: Respiratory Tract Infection Hx - automatic punch press operator Hx Respiratory Tract Infection No 07/10/25 10:41 STOP Sleep Apnea STOP Sleep Apnea - automatic punch press operator: STOP Sleep Apnea - automatic punch press operator Hx Hypertension Yes 07/10/25 10:41 Hx Sleep Apnea Yes 07/10/25 10:41 CPAP Yes 07/10/25 10:41 BIPAP No 07/10/25 10:41 Do you snore loudly (louder than talking or can be heard Do you often feel tired/ fatigued/ sleepy during daytime? Has anyone observed you stop breathing during sleep? STOP Results Positive 07/10/25 10:41 QUESTION #5 FULL TEXT : Do you snore loudly (louder than talking or can be heard through closed doors)? 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 Specify any problems Hx of Preganancy in last 3 N/A 07/10/25 10:41 Months Nurse Filling Out Transfusion JZOLLINGE 07/10/25 10:41 & Questions: Date: 07/10/25 07/10/25 10:41 Time: 10:42 07/10/25 10:41 Patient unable to answer at this time (ie. confused, unrespo /Reproduction History /Reproductive History - automatic punch press operator: /Reproductive Hx- automatic punch press operator Hx Now No 07/10/25 10:41 Gestational Age (in weeks): EDC: Hx Hx Para Hx Section SAB No 07/10/25 10:41 Does the father of the baby or his family experience fever w Father of the baby Malignant Hypertension history comment [facility] Medical History Wears glasses Cancer Prostate disease Non-smoker BiPAP (biphasic positive airway pressure) dependence Sleep apnea History of echocardiogram History of stress test Cardiology follow-up encounter PAF (paroxysmal atrial fibrillation) Knee pain Hay fever Arthritis Personal history of colonic polyps HTN (hypertension) Home Medications Medication Instructions Recorded Last Taken Type finasteride 5 mg tablet 5 mg PO DAILY prostate 08/22 Unknown History atenolol 50 mg tablet (Tenormin) 25 mg PO DAILY blood pressure 07/01/23 02/08/25 History fluticasone propionate 50 1 spray intranasal BID PRN 0 10/02/23 Unknown History mcg/actuation nasal allergies spray,suspension lisinopril 10 1 tab PO .QD 07/14/24 Unknow n History mg-hydrochlorothiazide 12.5 mg tablet vitamins A,C,D-iaja-oeqqff 4,296 1 cap PO BID 07/14/24 Unknown History mcg-226 mg-90 mg capsule (PreserVision AREDS) lorazepam 1 mg tablet 1 mg PO QHS 01/10/25 Unknown History tamsulosin 0.4 mg capsule 0.4 mg PO QDAY 01/10/25 Unkn own History apixaban 5 mg tablet (Eliquis) 5 mg PO BID #180 tabs 1 09/09/24 Unknown Rx Allergy/AdvReac Type Severity Reaction Status Date / Time house dust Allergy Other Verified 07/10/25 10:35 ragweed pollen Allergy Other Verified 07/10/25 10:35 tramadol (From Ultram) Allergy Constipatio Verified 07/10/25 10:35 n tree and shrub pollen Allergy Other Verified 07/10/25 10:35 yeast, dried Allergy unknown Verified 07/10/25 10:35 Family History Father Heart disease Hypertension Myocardial infarction Mother Cancer Lung cancer Surgical History Hx of colonoscopy Status post lateral meniscus repair S/P laparoscopic cholecystectomy Social History housing: house Smoking Status: Never smoker alcohol intake: never Audit: Pertinent Findings HISTORY of Pertinent Findings History of Pertinent Findings: EKG Pertinent Findings EKG Perinent findings 07-02-25: Afib with LAD 07/10/25 13:51 Stress Test Pertinent Findings Stress test pertinent findings Stress Test 06/30/2023: 07/10/25 13:51 Pharmacologic myocardial perfusion stress test. 73-year-old with history of chest pain and atrial fibrillation Resting EKG demonstrates sinus bradycardia with a rate of 57 bpm. Resting blood pressure is 110/64 mmHg. 0.4 mg of regadenoson was infused per usual protocol followed by rapid intravenous saline flush injection. Continuous EKG monitoring was performed. The maximum heart rate was 76 bpm which was 51% of max impacted heart rate the maximum workload was 1 metabolic equivalent. At rest there were no ST or T wave changes noted to suggest ischemia and at peak infusion nonspecific ST changes were noted which did not meet the criteria for ischemia. No clinical angina is noted. The final blood pressure was 102/60 mmHg. Myocardial perfusion protocol. 15 mCi of technetium 99m sestamibi was injected at rest. 0.4 mg of regadenoson was infused per usual protocol. At peak infusion 44.8 mCi of technetium 99m sestamibi was injected stress images were obtained stress and rest images were reconstructed and compared in the short axis vertical long and horizontal long axis. Gated images were also obtained. Perfusion SPECT analysis: Review of the stress images demonstrate normal uptake of tracer noted in all areas of the myocardium. The resting images similar demonstrated normal uptake of tracer noted in all areas of the myocardium. No areas of reversibility are noted to suggest ischemia and no previous infarct is noted. Gated SPECT analysis: The gated ejection fraction is 68%. Conclusion: Normal pharmacologic myocardial perfusion stress test. Preserved ejection fraction. Echo Pertinent Findings Echo (EF%) pertinent findings Echocardiogram 06/01/2023: 07/10/25 13:51 Normal LV size. Left ventricular systolic function is normal. The estimated ejection fraction is 60 %. The left atrium is mildly enlarged. Pulmonary artery systolic pressure is 34 mmHg Pertinent Findings Consult pertinent findings: 07/12/2025. Seng AVALOS. Patient is cleared for the described surgery. He is back in normal sinus rhythm. Patient has a monitor at home that notes this. He feels better. Do not feel any further adjustments or testing needs to be done. RCRI score is 0. Recommendation Anesthesia Recommendation Anesthesia recommendation: OPTIMIZED for anesthesia
[2025-07-17] VITALS (9 sets, daily range): BP systolic 121–131; BP diastolic 58–90; PULSE 68–83; RESP 16–20; TEMP 36.2–36.6; O2SAT 92–98; BMI 47.7
[2025-07-17] MEDS: Lactated Ringers 1,000 ML 15 ML IV (11:32)
--- NOTE | 2025-07-17 11:45 | EKG12_ITS ---
Test Reason : P Blood Pressure : */* mmHG Vent. Rate : 59 BPM Atrial Rate : 59 BPM P-R Int : 168 ms QRS Dur : 96 ms QT Int : 412 ms P-R-T Axes : 31 75 64 degrees QTcB Int : 407 ms Sinus bradycardia Nonspecific ST and T wave abnormality Abnormal ECG When compared with ECG of 02-Jul-2025 13:18, Sinus rhythm has replaced Atrial fibrillation Vent. rate has decreased by 29 bpm QRS axis Shifted right ST no longer depressed in Inferior leads T wave inversion no longer evident in Inferior leads Confirmed by OLIVER AHUMADA, ADELA ([id number]), magazine editor KAUR OVALLE ([id number]) on 07/19/2025 6:38:35 AM Referred By: Jus Downey Confirmed By: ADELA BOYD MD
--- NOTE | 2025-07-17 12:10 | PRE.ANES_ITS ---
ASA Classification* ASA Classification ASA Classification: 3 Assessment & Plan Anesthesia* Anesthesia Assessment Anesthesia Assessment: Discussed sedation and/or anesthesia options, risks, benefits, and alternatives with patient/parents/legal guardian/POA. Questions invited. The patient/parents/legal guardian/POA seems to understand and agrees to proceed with anesthesia plan. Reviewed the physical assessment, medical history, allergy history and patient home medications list prior to surgery/procedure/anesthetic and documented any changes. Performed airway and anesthesia risk assessments. Anesthesia Type Anesthesia Type: General (Consider GlideScope intubation.) History Source History Obtained from:: Patient and Chart Anesthesia Focused Assessment* Temperature: 97.1 F Pulse Rate: 68 Blood Pressure: 131/65 Respiratory Rate: 18 Pulse Ox: 98 Oxygen Delivery Method: Room Air Airway Assessment Mouth opens: >3 cm Mallampati Score: IV Teeth Condition: Caps/Crowns (Patient has a couple of caps. They are tight.) Neck Range of motion (ROM): Limited ROM (Somewhat Decreased) Labs Anesthesia Preop lab: CBC WBC, (4.4-11.0) 7.7 K/mm3 07/02/25, 13:32 RBC, (4.6-6.2) 4.49 M/mm3 L 07/02/25, 13:32 Hgb, (13.0-16.5) 13.3 g/dL 07/02/25, 13:32 Hct, (40-54) 39.7 % L 07/02/25, 13:32 Plt Count, (150-450) 186 K/mm3 07/02/25, 13:32 CHEMISTRY Potassium, (3.3-5.1) 4.1 mmol/L 07/02/25, 13:32 Sodium, (133-145) 137 mmol/L 07/02/25, 13:32 Magnesium, (1.6-2.6) 2.3 mg/dL 06/01/23, 18:55 BUN, (4-19) 23 mg/dL H 07/02/25, 13:32 Creatinine, (0.70-1.20) 1.18 mg/dL 07/02/25, 13:32 Glucose, (70-99) 129 mg/dL H 07/02/25, 13:32 TSH, (0.358-3.74) 1.36 uIU/mL 06/01/23, 16:25 COAG PT, (11.7-14.9) 15.8 SECONDS H 07/02/25, 13:32 Pre-Assessment Diagnosis/Proposed Procedure Planned Operative Procedure(s): Septoplasty and FESS Anesthesia History 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 When Was Last Pacemaker Check QUESTION #4 FULL TEXT: You/Your Family Experience fever (hyperthermia) with Anesthesia Last Oral Intake Last Oral intake: Last Oral Intake NPO since 22:00 07/17/25 11:22 Meds taken in AM with sips of No 07/17/25 11:22 water? 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 Female No 07/10/25 10:41 HX of Motion Sickness No 07/10/25 10:41 HX of N/V After Surgery No 07/10/25 10:41 Non-Smoker Yes 07/10/25 10:41 Duration of Surgery greater No 07/10/25 10:41 than 60 minutes Number of Risk Factors 1 07/10/25 10:41 PONV Score Low Risk 07/10/25 10:41 Height & Weight Height & Weight: Anesthesia: Height & Weight Height 5 ft 10 in 07/17/25 11:22 Weight: 151 kg 07/17/25 11:22 Body Mass Index (BMI) 47.7 07/17/25 11:22 Respiratory Assessment Respiratory Assessment - frame stripper and crusher: Respiratory Tract Infection Hx - frame stripper and crusher Hx Respiratory Tract Infection No 07/10/25 10:41 STOP Sleep Apnea STOP Sleep Apnea - frame stripper and crusher: STOP Sleep Apnea - frame stripper and crusher Hx Hypertension Yes 07/10/25 10:41 Hx Sleep Apnea Yes 07/10/25 10:41 CPAP Yes 07/10/25 10:41 BIPAP No 07/10/25 10:41 Do you snore loudly (louder than talking or can be heard Do you often feel tired/ fatigued/ sleepy during daytime? Has anyone observed you stop breathing during sleep? STOP Results Positive 07/10/25 10:41 QUESTION #5 FULL TEXT : Do you snore loudly (louder than talking or can be heard through closed doors)? 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 Specify any problems Hx of Preganancy in last 3 N/A 07/10/25 10:41 Months Nurse Filling Out Transfusion BREANNA 07/10/25 10:41 & Questions: Date: 07/10/25 07/10/25 10:41 Time: 10:42 07/10/25 10:41 Patient unable to answer at this time (ie. confused, unrespo /Reproduction History /Reproductive History - frame stripper and crusher: /Reproductive Hx- frame stripper and crusher Hx Now No 07/10/25 10:41 Gestational Age (in weeks): EDC: Hx Hx Para Hx Section SAB No 07/10/25 10:41 Does the father of the baby or his family experience fever w Father of the baby Malignant Hypertension history comment Active Medications Active Medications: Current Medications Generic Name Dose Route Start Last Admin Trade Name Freq PRN Reason Stop Dose Admin Lactated Ringer's 1,000 mls @ 15 mls/hr 07/17/25 11:00 07/17/25 11:32 IV 15 mls/hr .Q48H MARYURI Administration PFSH Medical History Wears glasses Cancer Prostate disease Non-smoker BiPAP (biphasic positive airway pressure) dependence Sleep apnea History of echocardiogram History of stress test Cardiology follow-up encounter PAF (paroxysmal atrial fibrillation) Knee pain Hay fever Arthritis Personal history of colonic polyps HTN (hypertension) Home Medications Medication Instructions Recorded Last Taken Type finasteride 5 mg tablet 5 mg PO DAILY prostate 08/2207/16/25 History atenolol 50 mg tablet (Tenormin) 25 mg PO DAILY blood pressure 07/01/23 07/16/25 History fluticasone propionate 50 1 spray intranasal BID PRN 0 10/02/23 07/15/25 History mcg/actuation nasal allergies spray,suspension lisinopril 10 1 tab PO .QD 07/14/24 History mg-hydrochlorothiazide 12.5 mg tablet vitamins A,C,H-ammo-fyhibs 4,296 1 cap PO BID 07/14/24 07/16/25 History mcg-226 mg-90 mg capsule (PreserVision AREDS) lorazepam 1 mg tablet 1 mg PO QHS 01/10/25 5 History tamsulosin 0.4 mg capsule 0.4 mg PO QDAY 01/10/2507/01 History apixaban 5 mg tablet (Eliquis) 5 mg PO BID #180 tabs 1 09/09/24 07/10/25 Rx Allergy/AdvReac Type Severity Reaction Status Date / Time house dust Allergy Other Verified 07/17/25 11:20 ragweed pollen Allergy Other Verified 07/17/25 11:20 tramadol (From Ultram) Allergy Constipatio Verified 07/17/25 11:20 n tree and shrub pollen Allergy Other Verified 07/17/25 11:20 yeast, dried Allergy unknown Verified 07/17/25 11:20 Family History Father Heart disease Hypertension Myocardial infarction Mother Cancer Lung cancer Surgical History Hx of colonoscopy Status post lateral meniscus repair S/P laparoscopic cholecystectomy Social History housing: house Smoking Status: Never smoker alcohol intake: never Review of Systems (Anesthesia) ROS Narrative System reviewed and no additional complaints, except as documented.
--- NOTE | 2025-07-17 12:15 | SEP_PTH ---
PATIENT: ANTONIO ANDERSON Jr. LOC: [facility] [place] U#:[id number] AGE/SX: 75/M ROOM: RE07/17/[address]: Dr. Jus Downey MD : 1950 BED: DIS: 07/17/2025 SPEC #: [id number] RECD: 07/17/25 14:35 STATUS: MICHELE RODO #: [id number] JESUS: 07/17/25 12:[address]: Jus Downey DEPT: SURGICAL PATHOLOGY RECD BY: Micha Michel Tissues: A - Nasal septum, NOS Procedures: Decalcification bone/plaque Surgery Specimen Level III HEADER OPERATION: Septoplasty and FESS PRE-OP DIAGNOSIS: Deviated nasal septum, hypertrophy of nasal turbinates, nasal congestion TISSUE SUBMITTED: A- Septum MICROSCOPIC DIAGNOSIS A. Septum, septoplasty: * Fragments of benign cartilage and bone MICROSCOPIC DESCRIPTION Slides are reviewed. GROSS DESCRIPTION A. Received in formalin labeled with the patient's name and date of . Designated as " septum" is a 3.5 x 2.8 x 0.6 cm aggregate of fitzgerald-white to red, irregular bone and cartilaginous tissue fragments. Special Event Assistant sections are submitted in 1 cassette, following decalcification. MO 07/17/2025 CPT:59351,61247
[2025-07-17] MEDS: fentaNYL 100 MCG/2 ML Ampul IV (12:31)
--- NOTE | 2025-07-17 12:44 | DS.PCM_ITS ---
Providers Primary Care Physician: Dr. Elidia Brush MD Reason For Visit: Septoplasty and FESS Medications at Discharge Home Medications finasteride 5 mg tablet 5 mg PO DAILY prostate 08/22/19 atenolol 50 mg tablet (Tenormin) 25 mg PO DAILY blood pressure 07/01/23 fluticasone propionate 50 mcg/actuation nasal spray,suspension 1 spray intranasal BID PRN allergies 10/02/23 lisinopril 10 mg-hydrochlorothiazide 12.5 mg tablet 1 tab PO .QD 07/14/24 vitamins A,C,B-vduh-axhtuw 4,296 mcg-226 mg-90 mg capsule (PreserVision AREDS) 1 cap PO BID 07/14/24 lorazepam 1 mg tablet 1 mg PO QHS 01/10/25 tamsulosin 0.4 mg capsule 0.4 mg PO QDAY 01/10/25 apixaban 5 mg tablet (Eliquis) 5 mg PO BID #180 tabs 07/10/25 Weight / BMI Weight Weight: 151 kg Body Mass Index (BMI) 47.7 D/C Instructions Discharge Activity: Return to Normal Activity Additional Activity Instructions: No nose blowing. Start saline irrigation tomorrow (3x/day). DC O2, CPAP, BIPAP Needs Home O2 Discharge instructions: No Please Follow Up With: Jus Downey MD When: 8 days Meaningful Use Info Meaningful Use Meaningful Use Diagnoses (Choose all that apply): None applicable Discharge Plan Admission Attending Provider: Jus Downey Primary Care Provider: Elidia Brush Instructions Print Language: Luxembourgish Discharge Orders/Prescriptions Prescriptions: No Action finasteride 5 mg tablet 5 mg PO DAILY fluticasone propionate 50 mcg/actuation spray,suspension 1 spray INTRANASAL BID PRN (Reason: allergies) Rx Instructions: administer into each nostril tamsulosin 0.4 mg capsule 0.4 mg PO QDAY lisinopril-hydrochlorothiazide 10-12.5 mg tablet 1 tab PO .QD PreserVision AREDS 4,296 mcg-226 mg-90 mg capsule 1 cap PO BID lorazepam 1 mg tablet 1 mg PO QHS Patient Comments: [NO ORIGINAL SIG] atenolol [Tenormin] 50 mg tablet 25 mg PO DAILY Eliquis 5 mg tablet 5 mg PO BID Qty: 180 3RF Referrals / Follow Up: Elidia Brush MD [Primary Care Provider, Family Practice] Disposition Disposition (needs filled in before D/C Order can be placed): Home, Self Care
[2025-07-17] MEDS: Lidocaine 1% /Epi 1:100 (20ml) 20 ML Vial (13:12)
[2025-07-17] MEDS: Oxymetazoline 0.05% 1 SPRAY SPRAY.BTL 15 SPRAY (13:13)
[2025-07-17] MEDS: Mupirocin Ointment 22gm Tube 1 APPLIC (13:14)
--- NOTE | 2025-07-17 14:03 | OP.PCM_ITS ---
Operative Report (Standard) Operative Information Date of Procedure: 07/17/25 Pre-Operative Diagnosis: nasal airway obstruction deviated septum inferior turbinate hypertrophy bilaterally Post-Operative Diagnosis: same Surgery/Procedure Performed: Septoplasty Bilateral submucous resection inferior turbinates crew foreman: No Type of Anesthesia: General RN Documented Start/Stop Times: Operation Date: 07/17/25 12:15 Case Time Into Pre-Op 07/17/25 10:54 Out of Pre-Op 07/17/25 12:28 Anesthesia Start 07/17/25 12:31 Into Room 07/17/25 12:31 Procedure Start 07/17/25 12:47 Procedure End 07/17/25 14:00 Procedure Start Time: 12:47 Procedure Stop Time: 14:04 Select all DRAINS/GRAFTS/IMPLANTS that apply: None Estimated Blood Loss: 30 cc Specimen collected: Yes Description of specimen(s) removed: septum Description of surgery: The patient was taken to the operating room on 07/17/25. He was placed in supine position on the operating table. He was given sufficient general endotracheal anesthesia. The table was elevated 30 degrees. The nose was draped sterilely. 1% lidocaine with epinephrine was injected into the septum nasal floor anterior aspect of the inferior turbinates bilaterally. Nasal hair was trimmed with the scissors and removed. A right hemitransfixion incision was made with a 15 blade. The mucoperichondrium was elevated off of the left-hand side of the septum with a [place] elevator. An anterior and posterior tunnel were created in this fashion. The bony cartilaginous junction was with a [place] elevator. A posterior tunnel was created on the right side developed by elevating the mucoperichondrium with a [place]. The deviated portions of bony septum removed using open [place] forceps. Next I established a plane on the right-hand side of the quadrangular cartilage. Deviated portions of the quadrangular cartilage were removed with open arden serna forceps.Afrin was used for hemostasis as well as Elisa powder and suction cautery. Next, an incision was placed at the anterior aspect of the right inferior turbinate at the mucocutaneous junction. A submucous plane was established with a caudal elevator. Submucous resection was carried out using a microdebrider where bone and tissue were removed. Afrin pledgets were used for hemostasis. The incision was then closed with 4-0 chromic. Then, an incision was placed at the anterior aspect of the left inferior turbinate at the mucocutaneous junction. A submucous plane was established using a caudal elevator. Submucous resection was carried out using a microdebrider where bone and tissue were removed. The incision was then closed with 4-0 chromic. Afrin and Elisa were used for hemostasis. The hemitransfixion incision was closed with 4-0 chromic. Green nasal splints were applied to each side of the septum and sewn through and through with 3-0 silk. The patient was then awoken and brought to the recovery room in stable condition. Blood loss 30 cc, replacement none. Sponge, needle and instrument count, were correct at the end of this procedure. Surgical Findings: deviated septum Complications Complications: No
--- NOTE | 2025-07-17 14:13 | PCM.POST.ANE ---
Anesthesia: Postop Eval I Current Vital Signs Temperature: 97.9 F Pulse Rate: 83 Blood Pressure: 121/60 Respiratory Rate: 20 Pulse Ox: 93 Assessment Airway patent: Yes Spontaneous unlabored respirations: Yes nausea: No Vomiting: No Anesthesia Complication: No Fluid Hydration Crystalloid volume administer (ml): 1,500 Total IV fluid infused: 1,500 Progress Note Anesthesia document: Postop Eval 1 completed: Yes
--- NOTE | 2025-07-17 16:36 | POSTOPAN2_ITS ---
Anesthesia Postop Eval I Sum Postop Eval Completion status Anesthesia document: Postop Eval 1 completed: Yes Anesthesia Postop Eval I Summary Anesthesia Postop Eval I Summary: Anesthesia Postop Eval I: Assessment Summary Airway patent Yes 07/17/25 14:13 CREDIT OPERATIONS SPECIALIST.CSIR Spontaneous unlabored Yes 07/17/25 14:13 CREDIT OPERATIONS SPECIALIST.CSIR respirations Mental status nausea No 07/17/25 14:13 CREDIT OPERATIONS SPECIALIST.CSIR Vomiting No 07/17/25 14:13 CREDIT OPERATIONS SPECIALIST.CSIR Anesthesia Postop Eval I: Fluid Summary Crystalloid volume administer 1,500 07/17/25 14:13 CREDIT OPERATIONS SPECIALIST.CSIR (ml) Colloids volume administered ( ml) Blood Product volume administered (ml) Total IV fluid infused 1,500 07/17/25 14:13 CREDIT OPERATIONS SPECIALIST.CSIR Anesthesia Postop Eval I: Summary Notes Anesthesia Complication No 07/17/25 14:13 CREDIT OPERATIONS SPECIALIST.CSIR Anesthesia Complication Comment: Post-operative progress note Anesthesia: Postop Eval II Evaluation Mental status: Awake and Calm Pain Level: 1 nausea: No Vomiting: No
--- NOTE | 2025-07-17 16:36 | PCM.POSTANE2 ---
Anesthesia Postop Eval I Sum Postop Eval Completion status Anesthesia document: Postop Eval 1 completed: Yes Anesthesia Postop Eval I Summary Anesthesia Postop Eval I Summary: Anesthesia Postop Eval I: Assessment Summary Airway patent Yes 07/17/25 14:13 [employer][email or web address] Spontaneous unlabored Yes 07/17/25 14:13 [employer].CS[employer] respirations Mental status nausea No 07/17/25 14:13 [employer].CSIR Vomiting No 07/17/25 14:13 [employer].CSIR Anesthesia Postop Eval I: Fluid Summary Crystalloid volume administer 1,500 07/17/25 14:13 [employer].CSIR (ml) Colloids volume administered ( ml) Blood Product volume administered (ml) Total IV fluid infused 1,500 07/17/25 14:13 [employer].CSIR Anesthesia Postop Eval I: Summary Notes Anesthesia Complication No 07/17/25 14:13 [employer].CSIR Anesthesia Complication Comment: Post-operative progress note Anesthesia: Postop Eval II Evaluation Mental status: Awake and Calm Pain Level: 1 nausea: No Vomiting: No
== END 2025-07-17 15:25 | disposition home or self-care (01) ==
LOC: SDC 10:48 → AC 10:49
PROVIDERS: PCP Pediatrics; Referring Provider Otolaryngology; Visit Provider Otolaryngology
DX: J34.3 Hypertrophy of nasal turbinates (principal); I48.0 Paroxysmal atrial fibrillation; J34.2 Deviated nasal septum; J34.89 Other specified disorders of nose and nasal sinuses; I10 Essential (primary) hypertension; N42.9 Disorder of prostate, unspecified; G47.30 Sleep apnea, unspecified; Z79.01 Long term (current) use of anticoagulants; Z79.899 Other long term (current) drug therapy
CPT/HCPCS: 30140; 30520; 00160; 88304; 88311; 93005; J2405